=== PATIENT | female | born 1970 | race African-American/Black ===

== ENCOUNTER 2021-11-29 22:44 | Emergency (ER) | payer MEDICAID, OTHER ==
[~2021-11-29] VITALS: Ht 160 cm; Wt 95.3 kg
[2021-11-29 23:27] LABS: Eosinophils # (auto) 0.1 10 ^3/uL (0-0.8); Hematocrit 27.9 % (36.0-46.0); Lymphocytes # (auto) 1.2 10 ^3/uL (0.4-5.4)
[2021-11-29 23:30] LABS: Basophils # (auto) 0.1 10 ^3/uL (0-0.2); Basophils % (auto) 1.4 % (0.0-2.0); Hemoglobin 8.5 g/dL (12.2-16.2); Lymphocytes % (auto) 19.5 % (10.0-50.0); Mean Corpuscular Hemoglobin 21.2 pg (28.0-32.0); Mean Corpuscular Hgb Conc. 30.5 g/dL (32.0-36.0); Mean Corpuscular Volume 69.6 fL (80.0-100.0); Monocytes # (auto) 0.5 10 ^3/uL (0-1.3); Monocytes % (auto) 7.8 % (0.0-12.0); Neutrophils # (auto) 4.2 10 ^3/uL (1.6-8.6); Neutrophils % (auto) 70.3 % (37.0-80.0); Red Blood Cells 4.01 10^6/uL (4.0-5.20); Red Cell Distribution Width 19.1 % (11.8-14.3)
[2021-11-29] MEDS ORDERED: MORPHINE SULFATE 4 MG/ML SYR/VIAL IV ONE (23:30)
[2021-11-29 23:42] LABS: INR 1.05 (0.9-1.15); Partial Thromboplastin Time < 20.0 sec (23.6-33.0)
[2021-11-29 23:44] LABS: Albumin 2.8 g/dL (3.4-5.0); Calcium 8.5 mg/dL (8.5-10.1); Potassium 4.2 mmol/L (3.5-5.1)
[2021-11-29 23:48] LABS: BUN/Creatinine Ratio 6.7; Bilirubin, Total 0.4 mg/dL (0.2-1.0); Total Protein 6.8 g/dL (6.4-8.2)
[2021-11-30 01:00] VITALS: BP 146/60
== END 2021-11-30 02:20 | disposition home or self-care (01) ==
LOC: ER 22:44
DX: M79.605 Pain in left leg (principal); J45.909 Unspecified asthma, uncomplicated; E11.9 Type 2 diabetes mellitus without complications; F12.10 Cannabis abuse, uncomplicated
CPT/HCPCS: 36415; 80053; 85025; 85379; 85610; 85730; 93971; 96374; 99284; J2270

== ENCOUNTER 2021-12-04 08:33 | Inpatient (IN) | payer OTHER, MEDICAID ==
[~2021-12-04] VITALS: Ht 160 cm; Wt 113.8 kg
[2021-12-04 08:59] LABS: Basophils # (auto) 0.1 10 ^3/uL (0-0.2); Lymphocytes # (auto) 1.6 10 ^3/uL (0.4-5.4)
[2021-12-04] MEDS ORDERED: MORPHINE SULFATE 4 MG/ML SYR/VIAL IV ONE (09:00)
[2021-12-04 09:02] LABS: Basophils % (auto) 1.2 % (0.0-2.0); Eosinophils # (auto) 0.1 10 ^3/uL (0-0.8); Eosinophils % (auto) 0.7 % (0.0-7.0); Hematocrit 28.1 % (36.0-46.0); Hemoglobin 8.9 g/dL (12.2-16.2); Lymphocytes % (auto) 18.4 % (10.0-50.0); Mean Corpuscular Hemoglobin 21.8 pg (28.0-32.0); Mean Corpuscular Hgb Conc. 31.7 g/dL (32.0-36.0); Mean Corpuscular Volume 68.7 fL (80.0-100.0); Monocytes # (auto) 0.5 10 ^3/uL (0-1.3); Monocytes % (auto) 5.9 % (0.0-12.0); Neutrophils # (auto) 6.2 10 ^3/uL (1.6-8.6); Neutrophils % (auto) 73.8 % (37.0-80.0); Nucleated Red Blood Cells % 0.1 %; Red Blood Cells 4.09 10^6/uL (4.0-5.20); Red Cell Distribution Width 18.7 % (11.8-14.3); White Blood Cell 8.4 10^3/uL (4.4-10.8)
[2021-12-04] MEDS ORDERED: IOHEXOL 300 MG/ML 100ML BOTTLE IJ ONE (09:03)
[2021-12-04 09:16] LABS: Albumin 2.7 g/dL (3.4-5.0); Calcium 8.9 mg/dL (8.5-10.1); Potassium 3.9 mmol/L (3.5-5.1)
[2021-12-04 09:20] LABS: BUN/Creatinine Ratio 8.3; Bilirubin, Total 0.2 mg/dL (0.2-1.0); Total Protein 7.2 g/dL (6.4-8.2)
[2021-12-04] MEDS ORDERED: LACTATED RINGER'S 1,000 ML IV ONE (11:00)
[2021-12-04] MEDS ORDERED: HYDROmorphone HCL 2 MG/ML VL/or syr IV ONE (11:00)
[2021-12-04] MEDS ORDERED: MORPHINE SULFATE INJECTION 2 MG/ML SYRG IV ONE ×2 (16:00→16:15)
[2021-12-04 16:17] LABS: Urine Bacteria FEW /hpf (None Seen); Urine Blood Negative /uL (Negative); Urine WBC <1 /hpf (0 - 5)
[2021-12-04] MEDS ORDERED: INSLISPI SC (20:15)
[2021-12-04] MEDS ORDERED: METF-370 PO (20:15)
[2021-12-04] MEDS ORDERED: INSLANTI SC (20:15)
[2021-12-04] MEDS ORDERED: FERR1TAB36 PO (20:15)
[2021-12-04] MEDS ORDERED: ONDANSETRON HCL 4 MG/2 ML VIAL IV PRN (21:00)
[2021-12-04] MEDS ORDERED: DEXTROSE (50%) 50ML SYRG IV PRN (21:00)
[2021-12-04] MEDS ORDERED: SODIUM CHLORIDE 0.9% 1,000 ML IV SCH (21:00)
[2021-12-04] MEDS: MORPHINE SULFATE INJECTION 2 MG/ML SYRG IV PRN (21:28)
[2021-12-04 23:30] VITALS: BP 143/80
[2021-12-05] MEDS: ACCU-CHEK COMFORT CURVE STRIP VI SCH ×4 (00:02→18:14)
[2021-12-05] MEDS: InsuLIN REG 1unit/0.01ml Soln (100units/ml) SC SCH ×4 (00:13→17:50)
[2021-12-05] MEDS: MORPHINE SULFATE INJECTION 2 MG/ML SYRG IV PRN ×2 (02:12→06:15)
[2021-12-05 04:38] VITALS: BP 132/66
[2021-12-05 06:32] LABS: Mean Corpuscular Volume 68.6 fL (80.0-100.0)
[2021-12-05 06:34] LABS: Basophils # (auto) 0.1 10 ^3/uL (0-0.2); Basophils % (auto) 0.6 % (0.0-2.0); Eosinophils # (auto) 0 10 ^3/uL (0-0.8); Eosinophils % (auto) 0.5 % (0.0-7.0); Hematocrit 25.4 % (36.0-46.0); Hemoglobin 7.9 g/dL (12.2-16.2); Lymphocytes # (auto) 1.8 10 ^3/uL (0.4-5.4); Lymphocytes % (auto) 20.9 % (10.0-50.0); Mean Corpuscular Hemoglobin 21.5 pg (28.0-32.0); Mean Corpuscular Hgb Conc. 31.3 g/dL (32.0-36.0); Monocytes # (auto) 0.9 10 ^3/uL (0-1.3); Monocytes % (auto) 10.6 % (0.0-12.0); Neutrophils # (auto) 5.6 10 ^3/uL (1.6-8.6); Neutrophils % (auto) 67.4 % (37.0-80.0); White Blood Cell 8.4 10^3/uL (4.4-10.8)
[2021-12-05 06:50] LABS: Potassium 3.5 mmol/L (3.5-5.1)
[2021-12-05 06:56] LABS: Albumin 2.3 g/dL (3.4-5.0); BUN/Creatinine Ratio 5.4; Bilirubin, Total 0.3 mg/dL (0.2-1.0); Calcium 8.4 mg/dL (8.5-10.1); Total Protein 6.3 g/dL (6.4-8.2)
[2021-12-05] MEDS ORDERED: ceFAZolin 1GM/50ML 100 ML IV ONE (08:22)
[2021-12-05 09:00] VITALS: BP 127/65
[2021-12-05 09:22] LABS: INR 1.06 (0.9-1.15); Partial Thromboplastin Time 27.8 sec (23.6-33.0)
[2021-12-05] MEDS ORDERED: MEPERIDINE HCL (50 MG/ML) 1 ML VIAL ONE (09:30)
[2021-12-05] MEDS ORDERED: LIDOCAINE W/ EPINEPHRINE 1% 20ML VIAL ONE (09:30)
[2021-12-05] MEDS ORDERED: fentaNYL CITRATE 100 MCG/2 ML VL ONE (09:30)
[2021-12-05] MEDS ORDERED: BUPIVACAINE 0.25% INJ 50ML VIAL ONE (09:30)
[2021-12-05] MEDS ORDERED: MIDAZOLAM HCL 2MG/2ML 2ml VIAL (1mg/ml) ONE (09:30)
[2021-12-05] MEDS ORDERED: HYDROmorphone HCL 2 MG/ML VL/or syr IV PRN (09:45)
[2021-12-05] MEDS ORDERED: LABETALOL HCL 5 MG/ML 4ML SYRINGE IV PRN (09:45)
[2021-12-05] MEDS ORDERED: ACCU-CHEK COMFORT CURVE STRIP VI ONE (09:45)
[2021-12-05] MEDS ORDERED: MIDAZOLAM HCL 2MG/2ML 2ml VIAL (1mg/ml) IV PRN (09:45)
[2021-12-05] MEDS ORDERED: KETOROLAC TROMETH 30 MG/ML 1ML VIAL IV ONE (09:45)
[2021-12-05] MEDS ORDERED: ePHEDrine SULFATE 50 MG/ML AMP IV PRN (09:45)
[2021-12-05] MEDS ORDERED: MORPHINE SULFATE 4 MG/ML SYR/VIAL IV PRN (09:45)
[2021-12-05] MEDS ORDERED: ONDANSETRON HCL 4 MG/2 ML VIAL IV PRN (09:45)
[2021-12-05] MEDS ORDERED: PANTOPRAZOLE 40 MG/10 ML VIAL INJ IV SCH (10:00)
[2021-12-05] MEDS ORDERED: DexAMETHasone SOD PHOS 10MG/1ML VIAL INJ ONE (10:38)
[2021-12-05] MEDS ORDERED: diphenhdrAMINE HCL 50 MG/1 ML VL ONE (10:38)
[2021-12-05] MEDS ORDERED: NEOSTIGMINE 1 MG/ML INJ (10mg/10ML VIAL) ONE (10:41)
[2021-12-05] MEDS ORDERED: GLYCOPYRROLATE 0.2 MG/ML 1ML VIAL ONE (10:41)
[2021-12-05] MEDS ORDERED: ONDANSETRON HCL 4 MG/2 ML VIAL ONE (10:41)
[2021-12-05] MEDS: ONDANSETRON HCL 4 MG/2 ML VIAL IV PRN (11:19)
[2021-12-05] MEDS: ceFAZolin 1GM/50ML 50 ML IV SCH ×2 (14:00→21:31)
[2021-12-05] MEDS: D5W/SOD CHL 0.45%/KCL 20MEQ 1,000 ML IV SCH ×2 (14:00→19:05)
[2021-12-05] MEDS: metroNIDAZOLE 500MG/100ML 100 ML IV SCH ×2 (15:17→22:47)
[2021-12-05 17:45] LABS: Thyroid Stimulating Hormone 0.89 uIU/mL (0.358-3.74)
[2021-12-05] MEDS: ACETAMINOPHEN/CODEINE#3 (300/30mg) TAB PO PRN (19:49)
[2021-12-05 19:57] LABS: % Iron Saturation 7.2 % (15-50)
[2021-12-05 20:06] LABS: Folate (Folic Acid) 13.49 ng/mL (5.38-24)
[2021-12-05] MEDS ORDERED: guaiFENesin-DM 100/10mg/5ml SYR PO PRN (21:05)
[2021-12-05] MEDS: HYDROmorphone HCL 2 MG/ML VL/or syr IV PRN (22:03)
[2021-12-05 22:55] VITALS: BP 149/96
[2021-12-06] MEDS: ACCU-CHEK COMFORT CURVE STRIP VI SCH ×4 (00:48→18:08)
[2021-12-06] MEDS: InsuLIN REG 1unit/0.01ml Soln (100units/ml) SC SCH ×4 (00:53→18:09)
[2021-12-06] MEDS: D5W/SOD CHL 0.45%/KCL 20MEQ 1,000 ML IV SCH (03:54)
[2021-12-06] MEDS: ceFAZolin 1GM/50ML 50 ML IV SCH ×3 (05:14→20:51)
[2021-12-06] MEDS: HYDROmorphone HCL 2 MG/ML VL/or syr IV PRN ×4 (05:28→20:52)
[2021-12-06 05:37] VITALS: BP 137/71
[2021-12-06] MEDS: metroNIDAZOLE 500MG/100ML 100 ML IV SCH ×3 (06:14→22:15)
[2021-12-06 06:21] LABS: Eosinophils # (auto) 0 10 ^3/uL (0-0.8); Eosinophils % (auto) 0.3 % (0.0-7.0); Hemoglobin 8.4 g/dL (12.2-16.2); Mean Corpuscular Hemoglobin 22.2 pg (28.0-32.0); Monocytes # (auto) 0.8 10 ^3/uL (0-1.3); Neutrophils # (auto) 6.8 10 ^3/uL (1.6-8.6); Potassium 3.6 mmol/L (3.5-5.1)
[2021-12-06 06:25] LABS: BUN/Creatinine Ratio 9.2; Basophils # (auto) 0 10 ^3/uL (0-0.2); Basophils % (auto) 0.6 % (0.0-2.0); Hematocrit 26.6 % (36.0-46.0); Lymphocytes # (auto) 0.9 10 ^3/uL (0.4-5.4); Lymphocytes % (auto) 10.5 % (10.0-50.0); Magnesium 1.7 mg/dL (1.6-2.6); Mean Corpuscular Hgb Conc. 31.5 g/dL (32.0-36.0); Mean Corpuscular Volume 70.6 fL (80.0-100.0); Monocytes % (auto) 8.9 % (0.0-12.0); Neutrophils % (auto) 79.7 % (37.0-80.0); Red Blood Cells 3.77 10^6/uL (4.0-5.20); Red Cell Distribution Width 19.7 % (11.8-14.3); White Blood Cell 8.5 10^3/uL (4.4-10.8)
[2021-12-06 08:43] VITALS: BP 111/62
[2021-12-06] MEDS: PANTOPRAZOLE 40 MG/10 ML VIAL INJ IV SCH (08:53)
[2021-12-06 13:00] VITALS: BP 117/73
[2021-12-06] MEDS ORDERED: SODIUM FERR GLUC 62.5MG/5ML 125 MG in SODIUM CHL 0.9% 100 ML IV ONE (16:30)
[2021-12-06 16:40] VITALS: BP 140/79
[2021-12-06 22:00] VITALS: BP 111/71
[2021-12-06] MEDS: MAGNESIUM OXIDE 400 MG TAB PO SCH (22:15)
[2021-12-07] MEDS: InsuLIN REG 1unit/0.01ml Soln (100units/ml) SC SCH ×5 (00:09→23:44)
[2021-12-07] MEDS: ACCU-CHEK COMFORT CURVE STRIP VI SCH ×5 (00:09→23:41)
[2021-12-07] MEDS: HYDROmorphone HCL 2 MG/ML VL/or syr IV PRN ×3 (04:28→20:34)
[2021-12-07] MEDS: ceFAZolin 1GM/50ML 50 ML IV SCH ×3 (04:46→20:34)
[2021-12-07 05:00] VITALS: BP 137/83
[2021-12-07] MEDS: metroNIDAZOLE 500MG/100ML 100 ML IV SCH ×3 (05:33→22:04)
[2021-12-07 06:55] LABS: Basophils # (auto) 0 10 ^3/uL (0-0.2); Eosinophils # (auto) 0 10 ^3/uL (0-0.8); Hematocrit 27.2 % (36.0-46.0); Hemoglobin 8.7 g/dL (12.2-16.2); Lymphocytes # (auto) 0.8 10 ^3/uL (0.4-5.4); Lymphocytes % (auto) 15.5 % (10.0-50.0); Mean Corpuscular Hemoglobin 22.5 pg (28.0-32.0); Mean Corpuscular Hgb Conc. 32.1 g/dL (32.0-36.0); Mean Corpuscular Volume 70.1 fL (80.0-100.0); Monocytes # (auto) 0.7 10 ^3/uL (0-1.3); Monocytes % (auto) 14.5 % (0.0-12.0); Neutrophils # (auto) 3.4 10 ^3/uL (1.6-8.6); Red Blood Cells 3.88 10^6/uL (4.0-5.20)
[2021-12-07 06:56] LABS: Red Cell Distribution Width 20.3 % (11.8-14.3)
[2021-12-07 09:00] VITALS: BP 124/58
[2021-12-07] MEDS: MAGNESIUM OXIDE 400 MG TAB PO SCH ×2 (09:38→22:04)
[2021-12-07] MEDS: PANTOPRAZOLE 40 MG/10 ML VIAL INJ IV SCH (09:38)
[2021-12-07] MEDS: SODIUM FERR GLUC 62.5MG/5ML 125 MG in SODIUM CHL 0.9% 100 ML IV SCH (12:00)
[2021-12-07 13:00] VITALS: BP 132/78
[2021-12-07] MEDS: ACETAMINOPHEN/CODEINE#3 (300/30mg) TAB PO PRN (14:28)
[2021-12-07 17:00] VITALS: BP 135/72
[2021-12-07 22:00] VITALS: BP 144/78
[2021-12-08] MEDS: HYDROmorphone HCL 2 MG/ML VL/or syr IV PRN ×4 (01:09→20:56)
[2021-12-08] MEDS: ceFAZolin 1GM/50ML 50 ML IV SCH ×3 (04:30→20:55)
[2021-12-08 05:00] VITALS: BP 118/61
[2021-12-08 05:30] LABS: Basophils # (auto) 0.1 10 ^3/uL (0-0.2); Basophils % (auto) 0.9 % (0.0-2.0); Eosinophils # (auto) 0.1 10 ^3/uL (0-0.8); Hematocrit 27.3 % (36.0-46.0); Monocytes # (auto) 0.9 10 ^3/uL (0-1.3)
[2021-12-08 05:33] LABS: Eosinophils % (auto) 1.9 % (0.0-7.0); Hemoglobin 8.7 g/dL (12.2-16.2); Lymphocytes # (auto) 1.2 10 ^3/uL (0.4-5.4); Lymphocytes % (auto) 21.1 % (10.0-50.0); Mean Corpuscular Hemoglobin 22.7 pg (28.0-32.0); Mean Corpuscular Hgb Conc. 32.1 g/dL (32.0-36.0); Mean Corpuscular Volume 70.7 fL (80.0-100.0); Monocytes % (auto) 15.6 % (0.0-12.0); Neutrophils # (auto) 3.4 10 ^3/uL (1.6-8.6); Neutrophils % (auto) 60.5 % (37.0-80.0); Red Blood Cells 3.86 10^6/uL (4.0-5.20); Red Cell Distribution Width 19.7 % (11.8-14.3); White Blood Cell 5.7 10^3/uL (4.4-10.8)
[2021-12-08] MEDS: ACCU-CHEK COMFORT CURVE STRIP VI SCH ×4 (05:39→23:59)
[2021-12-08] MEDS: metroNIDAZOLE 500MG/100ML 100 ML IV SCH ×3 (05:39→22:02)
[2021-12-08] MEDS: InsuLIN REG 1unit/0.01ml Soln (100units/ml) SC SCH ×3 (05:41→18:00)
[2021-12-08 05:44] LABS: Calcium 8.7 mg/dL (8.5-10.1); Potassium 3.5 mmol/L (3.5-5.1)
[2021-12-08 05:47] LABS: BUN/Creatinine Ratio 8.5
[2021-12-08 08:38] VITALS: BP 132/63
[2021-12-08] MEDS: PANTOPRAZOLE 40 MG/10 ML VIAL INJ IV SCH (09:30)
[2021-12-08] MEDS: MAGNESIUM OXIDE 400 MG TAB PO SCH ×2 (09:34→22:02)
[2021-12-08] MEDS: SODIUM FERR GLUC 62.5MG/5ML 125 MG in SODIUM CHL 0.9% 100 ML IV SCH (12:00)
[2021-12-08 12:38] VITALS: BP 140/75
[2021-12-08 16:38] VITALS: BP 154/76
[2021-12-08] MEDS ORDERED: DOCUSATE SOD 100 MG CAP PO PRN (17:45)
[2021-12-08 22:00] VITALS: BP 124/54
[2021-12-09] MEDS: HYDROmorphone HCL 2 MG/ML VL/or syr IV PRN ×6 (02:16→23:52)
[2021-12-09] MEDS: ceFAZolin 1GM/50ML 50 ML IV SCH ×3 (04:59→20:36)
[2021-12-09 05:00] VITALS: BP 155/80
[2021-12-09] MEDS: metroNIDAZOLE 500MG/100ML 100 ML IV SCH ×3 (05:59→23:52)
[2021-12-09] MEDS: ACCU-CHEK COMFORT CURVE STRIP VI SCH ×4 (05:59→23:56)
[2021-12-09] MEDS: InsuLIN REG 1unit/0.01ml Soln (100units/ml) SC SCH ×5 (06:00→23:54)
[2021-12-09 06:20] LABS: Albumin 2.1 g/dL (3.4-5.0); Calcium 8.5 mg/dL (8.5-10.1); Potassium 3.6 mmol/L (3.5-5.1)
[2021-12-09 06:22] LABS: Eosinophils # (auto) 0.1 10 ^3/uL (0-0.8); Hemoglobin 8.8 g/dL (12.2-16.2); Lymphocytes # (auto) 1.1 10 ^3/uL (0.4-5.4); White Blood Cell 6.2 10^3/uL (4.4-10.8)
[2021-12-09 06:23] LABS: BUN/Creatinine Ratio 9.4; Basophils # (auto) 0 10 ^3/uL (0-0.2); Basophils % (auto) 0.6 % (0.0-2.0); Bilirubin, Total 0.2 mg/dL (0.2-1.0); Eosinophils % (auto) 1.5 % (0.0-7.0); Hematocrit 27.9 % (36.0-46.0); Lymphocytes % (auto) 17.3 % (10.0-50.0); Mean Corpuscular Hemoglobin 22.2 pg (28.0-32.0); Mean Corpuscular Hgb Conc. 31.7 g/dL (32.0-36.0); Monocytes # (auto) 0.5 10 ^3/uL (0-1.3); Monocytes % (auto) 8.9 % (0.0-12.0); Neutrophils # (auto) 4.4 10 ^3/uL (1.6-8.6); Neutrophils % (auto) 71.7 % (37.0-80.0); Red Blood Cells 3.98 10^6/uL (4.0-5.20)
[2021-12-09 06:48] LABS: Red Cell Distribution Width 20.5 % (11.8-14.3)
[2021-12-09 09:23] VITALS: BP 127/77
[2021-12-09] MEDS: POLYETHYLENE GLYCOL 17 GM PWDR PO SCH (10:00)
[2021-12-09] MEDS: MAGNESIUM OXIDE 400 MG TAB PO SCH ×2 (10:00→22:06)
[2021-12-09] MEDS: PANTOPRAZOLE 40 MG/10 ML VIAL INJ IV SCH (10:00)
[2021-12-09] MEDS: SODIUM FERR GLUC 62.5MG/5ML 125 MG in SODIUM CHL 0.9% 100 ML IV SCH (12:00)
[2021-12-09 12:30] VITALS: BP 140/70
[2021-12-09] MEDS: ONDANSETRON HCL 4 MG/2 ML VIAL IV PRN (13:18)
[2021-12-09 17:00] VITALS: BP 122/75
[2021-12-09 22:00] VITALS: BP 126/67
[2021-12-09] MEDS ORDERED: SENNA 8.6 MG TAB PO SCH (22:00)
[2021-12-10] MEDS: HYDROmorphone HCL 2 MG/ML VL/or syr IV PRN (03:23)
[2021-12-10 04:35] VITALS: BP 129/68
[2021-12-10] MEDS: ceFAZolin 1GM/50ML 50 ML IV SCH ×2 (05:14→12:38)
[2021-12-10 05:47] LABS: Basophils # (auto) 0.1 10 ^3/uL (0-0.2); Eosinophils # (auto) 0.1 10 ^3/uL (0-0.8); Monocytes # (auto) 0.6 10 ^3/uL (0-1.3); Neutrophils # (auto) 3.8 10 ^3/uL (1.6-8.6); White Blood Cell 5.8 10^3/uL (4.4-10.8)
[2021-12-10 05:50] LABS: Basophils % (auto) 0.9 % (0.0-2.0); Eosinophils % (auto) 2.1 % (0.0-7.0); Hematocrit 27.4 % (36.0-46.0); Hemoglobin 8.8 g/dL (12.2-16.2); Lymphocytes # (auto) 1.2 10 ^3/uL (0.4-5.4); Lymphocytes % (auto) 21.4 % (10.0-50.0); Mean Corpuscular Hemoglobin 22.6 pg (28.0-32.0); Mean Corpuscular Volume 70.5 fL (80.0-100.0); Monocytes % (auto) 10.1 % (0.0-12.0); Neutrophils % (auto) 65.5 % (37.0-80.0); Nucleated Red Blood Cells % 0.2 %; Red Blood Cells 3.88 10^6/uL (4.0-5.20)
[2021-12-10 05:52] LABS: Red Cell Distribution Width 20.3 % (11.8-14.3)
[2021-12-10] MEDS: ACCU-CHEK COMFORT CURVE STRIP VI SCH ×2 (06:00→11:52)
[2021-12-10] MEDS: InsuLIN REG 1unit/0.01ml Soln (100units/ml) SC SCH ×2 (06:03→11:55)
[2021-12-10 06:04] LABS: Potassium 3.4 mmol/L (3.5-5.1)
[2021-12-10] MEDS: metroNIDAZOLE 500MG/100ML 100 ML IV SCH ×2 (06:04→14:00)
[2021-12-10 06:19] LABS: BUN/Creatinine Ratio 13.3; Bilirubin, Total 0.2 mg/dL (0.2-1.0); Calcium 8.4 mg/dL (8.5-10.1); Total Protein 5.9 g/dL (6.4-8.2)
[2021-12-10 08:30] VITALS: BP 126/63
[2021-12-10] MEDS: MAGNESIUM OXIDE 400 MG TAB PO SCH (09:10)
[2021-12-10] MEDS: POLYETHYLENE GLYCOL 17 GM PWDR PO SCH (09:10)
[2021-12-10] MEDS: PANTOPRAZOLE 40 MG/10 ML VIAL INJ IV SCH (09:11)
[2021-12-10] MEDS ORDERED: POTASSIUM CHL 20 Meq TABLET PO ONE (09:45)
[2021-12-10] MEDS: SODIUM FERR GLUC 62.5MG/5ML 125 MG in SODIUM CHL 0.9% 100 ML IV SCH (11:20)
[2021-12-10] MEDS ORDERED: LEVO500T31 PO (11:27)
[2021-12-10] MEDS ORDERED: METR500T PO (11:27)
[2021-12-10 13:22] VITALS: BP 141/77
[2021-12-10 13:36] VITALS: BP 141/77
== END 2021-12-10 15:00 | disposition home or self-care (01) | DRG 341 ==
LOC: EDBD 08:33 → ER 08:33 → OVERFLOW 20:58 → EAST 23:10
PROVIDERS: ADMIT Nurse Practitioner; ATTEND Internal Medicine
PROC: 30233N1 Transfusion of Nonautologous Red Blood Cells into Peripheral Vein, Percutaneous Approach (ICD-10-PCS; 2021-12-05)
PROC: 0DTJ4ZZ Resection of Appendix, Percutaneous Endoscopic Approach (ICD-10-PCS; principal; 2021-12-05 09:38)
PROC: 0UDB8ZZ Extraction of Endometrium, Via Natural or Artificial Opening Endoscopic (ICD-10-PCS; 2021-12-05 09:38)
DX: K37 Unspecified appendicitis (principal); E43 Unspecified severe protein-calorie malnutrition; D50.9 Iron deficiency anemia, unspecified; N83.201 Unspecified ovarian cyst, right side; D25.9 Leiomyoma of uterus, unspecified; J45.909 Unspecified asthma, uncomplicated; E11.65 Type 2 diabetes mellitus with hyperglycemia; E66.9 Obesity, unspecified; I10 Essential (primary) hypertension; R93.89 Abnormal findings on diagnostic imaging of other specified body structures; Z20.822 Contact with and (suspected) exposure to COVID-19; Z98.51 Tubal ligation status; Z68.37 Body mass index [BMI] 37.0-37.9, adult
CPT/HCPCS: 36415; 71045; 74177; 76705; 76830; 76856; 80048; 80053; 81001; 81025; 82607; 82746; 82962; 83036; 83540; 83550; 83605; 83615; 83690; 83735; 84443; 84484; 84702; 85025; 85045; 85610; 85730; 86850; 86900; 86901; 86920; 87081; 93005; 96361; 96374; 96375; 96376; 97110; 97116; 97163; 97530; C9113; G0378; J0690; J1100; J1815; J1885; J2250; J2405; J3490

== ENCOUNTER 2023-01-09 19:04 | Emergency (ER) | payer MEDICAID, OTHER ==
[~2023-01-09] VITALS: Ht 160 cm; Wt 94.3 kg
[~2023-01-09 19:04] MED LIST: FERR1TAB36 PO; INSLANTI SC; INSLISPI SC; LEVO500T31 PO; METF-370 PO; METR500T PO
[2023-01-09] MEDS ORDERED: GABA800T97 PO (20:22)
[2023-01-09] MEDS ORDERED: MEDR10TA9 PO (20:22)
[2023-01-09 20:29] VITALS: BP 134/92
[2023-01-09] MEDS ORDERED: GABAPENTIN 400 MG CAP PO ONE (20:30)
== END 2023-01-09 21:03 | disposition home or self-care (01) ==
LOC: ER 19:07
DX: E11.9 Type 2 diabetes mellitus without complications (principal); Z76.0 Encounter for issue of repeat prescription

== ENCOUNTER 2024-06-13 20:31 | Inpatient (IN) | payer MEDICAID ==
[~2024-06-13] VITALS: Ht 160 cm; Wt 98.9 kg
[~2024-06-13 20:31] MED LIST changes: +GABA800T97 PO; +MEDR10TA9 PO
--- NOTE | 2024-06-13 20:58 | ED.PDOC ---
HPI Comments 53-year-old female brought in by EMS presents with a chief complaint of chest pain x onset 0830 this morning. Patient states that her pain is localized to her substernal chest, non-radiating, describes as sharp, and reports that this pain feels similar to her previous MIs. Patient was tachycardic per EMS in the 120s, but was NSR. Patient was given 324mg ASA by EMS and dropped the pain from 10/10 to 7/10. No other symptoms or modifying factors present at this time. Time Seen by MD: 20:40 Primary Care Provider: NONE Reviewed Notes: Medications, Allergies Allergies: Coded Allergies: NO KNOWN ALLERGIES (Unverified , 12/04/21) Home Meds Active Scripts Medroxyprogesterone Acetate (Medroxyprogesterone Aceta) 10 Mg Tab, 10 MG PO DAILY, #60 TAB 0 Refills Prov:JEROD MIRANDA 01/09/23 Gabapentin (Gabapentin) 800 Mg Tab, 800 MG PO PRN, #30 TAB 0 Refills Prov:JEROD MIRANDA 01/09/23 Levofloxacin (Levaquin) 500 Mg Tab, 500 MG PO DAILY for 7 Days, #7 TAB Prov:ROSETTE LUO MD 12/10/21 Metronidazole (Flagyl) 500 Mg Tab, 500 MG PO TIDWM for 7 Days, #21 TAB Prov:ROSETTE LUO MD 12/10/21 Reported Medications Insulin Lispro (Human) (Humalog) 100 Unit/Ml Inj, SC QAM, INJ 12/04/21 Ferrous Sulfate (Iron (Ferrous Sulfate)) 50 Mg Tab, 325 MG PO DAILY, TAB 12/04/21 Insulin Glargine (Lantus) 100 Unit/Ml Inj, 24 UNIT SC DAILY, INJ 12/04/21 Metformin Hydrochloride (Metformin Hcl) 500 Mg Tab, PO DAILY for 30 Days, MG 12/04/21 Information Source: Emergency Med Personnel Mode of Arrival: EMS Severity: Moderate Timing: Hours Duration: Since onset Prehospital treatment: ASA Location: Substernal Radiation: No Radiation Quality: Sharp Onset: At Rest Cardiac Risk Factors: HTN, Diabetes PE Risk Factors: None History of: Similar pain in past, NV Past Medical History PAST MEDICAL HISTORY: CHF, DM, HTN, NV Surgical History: Appendectomy 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: Ovarian Cysts, Uterine Fibroids Family History Family History: Reviewed,noncontributory to illness Social History Smoker: Non-Smoker Alcohol: Denies ETOH Use Drugs: Denies Drug Use Lives In: Home Constitutional: denies: chills, diaphoresis, fatigue, fever, malaise, sweats, weakness, others EENTM: denies: blurred vision, double vision, ear bleeding, ear discharge, ear drainage, ear pain, ear ringing, eye pain, eye redness, hearing loss, mouth pain, mouth swelling, nasal discharge, nose bleeding, nose congestion, nose pain, photophobia, tearing, throat pain, throat swelling, voice changes, others Respiratory: denies: cough, hemoptysis, orthopnea, SOB at rest, shortness of breath, SOB with excertion, stridor, wheezing, others Cardiovascular: reports: chest pain; denies: dizzy spells, diaphoresis, Dyspnea on exertion, edema, irregular heart beat, left arm pain, lightheadedness, palpitations, PND, syncope, others Gastrointestinal: denies: abdomen distended, abdominal pain, blood streaked bowels, constipated, diarrhea, dysphagia, difficulty swallowing, hematemesis, melena, nausea, poor appetite, poor fluid intake, rectal bleeding, rectal pain, vomiting, others Genitourinary: denies: abnormal vagina bleeding, burning, dyspareunia, dysuria, flank pain, frequency, hematuria, incontinence, pain, , vagina discharge, urgency, others Neurological: denies: dizziness, fainting, headache, left sided numbness, left sided weakness, numbness, paresthesia, pre-existing deficit, right sided numbness, right sided weakness, seizure, speech problems, tingling, tremors, weakness, others Musculoskeletal: denies: back pain, gout, joint pain, joint swelling, muscle pain, muscle stiffness, neck pain, others Integumetry: denies: bruises, change in color, change in hair/nails, dryness, laceration, lesions, lumps, rash, wounds, others Allergic/Immunocompromised: denies: Difficulty Healing, Frequent Infections, Hives, Itching, others Hematologic/Lymphatic: denies: anemia, blood clots, easy bleeding, easy bruising, swollen glands, others Endocrine: denies: excessive hunger, excessive sweating, excessive thirst, excessive urination, flushing, intolerance to cold, intolerance to heat, unexplained weight gain, unexplained weight loss, others Psychiatric: denies: anxiety, bipolar disorder, depression, hopeless, panic disorder, schizophrenia, sleepless, suicidal, others All Other Systems: Reviewed and Negative Physical Exam General Appearance: No Apparent Distress HEENT: Normal ENT Inspection Neck: Full Range of Motion, Normal Inspection Respiratory: Decreased Breath Sounds, No Accessory Muscle Use, No Respiratory Distress Cardiovascular: No Edema, No JVD, Regular Rate/Rhythm Breast Exam: Deferred Gastrointestinal: Non Tender, Soft Genitalia: Deferred Pelvic: Deferred Rectal: Deferred Extremities: Normal inspection, Normal range of motion, No pedal edema Neurologic: Alert, No Motor Deficits, Normal Affect, Normal Mood, No Sensory Deficits Cerebellar Function: NOT DONE Reflexes: NOT DONE Skin: Dry, Normal Color, Warm Lymphatic: NOT DONE EKG EKG #1: Comments Sinus tach, rate 118, normal intervals, left axis deviation, upsloping ST elevation in anteroseptal leads possibly indicating acute infarct, minimal ST depression in leads 1 and aVL EKG #2: Comments Sinus tach, rate 119, normal intervals, left axis deviation, old inferior infarct, minimal upsloping ST elevation in anteroseptal leads with minimal ST depression in leads 1 and aVL, no significant change from EKG 1. Was a procedure done? Was a procedure done?: No CP Differential Dx Differential Diagnosis: Angina, Anxiety / Panic Attack, Heart Failure, NV Differential Diagnosis: CHF Differential Diagnosis: Chest Wall Pain, Esophageal reflux/spasm, Gastritis X-Ray, Labs, Meds, VS Vital Signs Date Time Temp Pulse Resp B/P (MAP) Pulse Ox O2 Delivery O2 Flow Rate FiO2 06/13/24 23:35 116 06/13/24 23:01 118 18 159/91 (113) 93 06/13/24 22:19 156/84 06/13/24 21:36 119 06/13/24 21:32 95 Room Air* 0 06/13/24 21:17 184/91 06/13/24 21:10 98.6 122 17 184/91 (122) 95 98.6 06/13/24 21:10 122 17 96 Room Air* 0 06/13/24 21:10 98.5 122 17 184/91 (122) 95 98.5 11/10/24 21:10 122 06/13/24 20:35 118 06/13/24 20:31 101.6 118 18 148/98 (115) 96 Lab Test 06/13/24 22:07 06/13/24 21:41 06/13/24 21:07 Range/Units Sodium Level 136 136-145 mmol/L Potassium Level 4.2 3.5-5.1 mmol/L Chloride Level 106 98-107 mmol/L Carbon Dioxide Level 23 20-31 mmol/L Anion Gap 7 5-15 Blood Urea Nitrogen 14 9-23 mg/dL Creatinine 1.03 H 0.550-1.02 mg/dL Glomerular Filtration Rate Calc 66 >90 mL/min BUN/Creatinine Ratio 13.6 10.0-20.0 Serum Glucose 395 H 74-106 mg/dL Calcium Level 9.2 8.7-10.4 mg/dL Troponin I High Sensitivity 5 6 </=34 ng/L Urine Color Colorless Yellow Urine Clarity Clear Clear Urine pH 5.5 5.0-9.0 Urine Specific [place] 1.026 1.001-1.035 Urine Protein 2+ H Negative Urine Ketones Negative Negative Urine Blood Negative Negative /uL Urine Nitrite Negative Negative Urine Bilirubin Negative Negative Urine Urobilinogen Normal Negative mg/dL Urine Leukocyte Esterase Negative Negative /uL Urine RBC 3 0 - 4 /hpf Urine WBC 8 0 - 5 /hpf Urine Squamous Epithelial Cells Few <5 /hpf Urine Bacteria Few H None Seen /hpf Urine Yeast (Budding) Few None Seen /hpf Urine Glucose 4+ H Normal mg/dL Urine Test Negative Negative White Blood Count 10.3 4.4-10.8 10^3/uL Red Blood Count 4.93 4.0-5.20 10^6/uL Hemoglobin 13.1 12.2-16.2 g/dL Hematocrit 40.7 36.0-46.0 % Mean Corpuscular Volume 82.5 80.0-100.0 fL Mean Corpuscular Hemoglobin 26.6 L 28.0-32.0 pg Mean Corpuscular Hemoglobin Concent 32.2 32.0-36.0 g/dL Red Cell Distribution Width 14.5 H 11.8-14.3 % Platelet Count 322 140-450 10^3/uL Mean Platelet Volume 8.3 6.9-10.8 fL Neutrophils (%) (Auto) 80.1 H 37.0-80.0 % Lymphocytes (%) (Auto) 12.3 10.0-50.0 % Monocytes (%) (Auto) 6.3 0.0-12.0 % Eosinophils (%) (Auto) 0.6 0.0-7.0 % Basophils (%) (Auto) 0.7 0.0-2.0 % Neutrophils # (Auto) 8.3 1.6-8.6 10 ^3/uL Lymphocytes # (Auto) 1.3 0.4-5.4 10 ^3/uL Monocytes # (Auto) 0.6 0-1.3 10 ^3/uL Eosinophils # (Auto) 0.1 0-0.8 10 ^3/uL Basophils # (Auto) 0.1 0-0.2 10 ^3/uL Nucleated Red Blood Cells 0.1 % Prothrombin Time 10.6 9.3-11.8 sec Prothrombin Time INR 1.00 0.9-1.15 Activated Partial Thromboplast Time 26.4 24.5-34.5 SEC B-Type Natriuretic Peptide 11.68 0-100 pg/mL Current Medications Medications (Trade) Dose Ordered Sig/Pepe Route Start Time Stop Time Status Last Admin Nitroglycerin (Nitro-Bid) 1 pkg ONCE ONCE TD 06/13/24 21:00 06/13/24 21:01 DC 06/13/24 21:17 PROCEDURE(s): CXRP - CHEST PORTABLE REASON: cp ORDER NUMBER(s): [id number], ACCESSION NUMBER(s): [id number] EXAM: XY CHEST PORTABLE CLINICAL HISTORY: cp TECHNIQUE: Single AP view of the chest WID: COMPARISON: CHEST PORTABLE on DOS: 12/04/21 FINDINGS: Lines and tubes: Defibrillator pad projects over the lateral right chest. Chest: The heart size and pulmonary vasculature is within normal limits. Calcified plaque projects over the aortic arch. No pleural effusion, pneumothorax, or consolidation. Nodular opacity in the lateral left lower lung. The osseous structures are grossly intact. IMPRESSION: 1. No acute cardiopulmonary abnormality. 2. Nodular opacity in the lateral left lower lung. Consider characterization with nonemergent / outpatient CT chest for further evaluation. X-Ray, Labs, Meds, VS Comment 53-year-old female with a history of hypertension, diabetes, mi, CHF presenting with chest pain similar to previous MIs Vitals remarkable for BP 184/91, heart rate 119 Exam remarkable for tachycardia EKG sinus tach, upsloping ST elevation in anteroseptal leads with minimal ST depression in lateral leads Chest x-ray unremarkable CBC unremarkable, basic metabolic panel remarkable for glucose 395, BNP and 2 serial troponins unremarkable, UA unremarkable for any abnormality of acute significance Case was discussed with Dr. Mtz, who reviewed the initial EKG. He agreed the findings were equivocal for STEMI, however since the patient was complaining of pain similar to previous MIs, he will take the patient to the blood bank laboratory technician. Patient was treated with the following in the ED: Nitro-Bid 1/2 inch to chest wall Plan is to admit the patient for ongoing cardiology evaluation. Case discussed with Dr. Vang at [facility] [place] who authorized the patient to be admitted here. Authorization [id number] Time of 1ST Reevaluation: 21:20 Reevaluation 1ST: Unchanged Time of 2ND Reevaluation: 22:00 Reevaluation 2ND: Improved Patient Education/Counseling: Diagnosis, Treatment, Prognosis Family Education/Counseling: No Family Present Departure 1 Departure Time of Disposition: 00:05 Impression: Primary Impression: Chest pain Qualified Codes: I20.0 - Unstable angina Disposition: 09 ADMITTED INPATIENT Admit to: Tele Condition: Guarded Critical Care Note Critical Care Time?: Yes (35 min-critical care time only) Critical care comment: Critical care time including multiple bedside re-evaluations, review of laboratory and imaging studies, and discussion of the case with the consulting and admitting providers. Patient is high risk for hemodynamic decompensation. Stability Stability form required: No Heart Score Heart Score: Heart Score Response (Comments) Value History Highly Suspicious [address]-Deviation 2 Age 45-64 1 Risk Factors >3 or Hx ASHD 2 Troponin Normal limit 0 Total 7 I personally scribed for ALEXANDRA ZEPEDA MD ([email or web address]) on 06/13/24 at 20:58. Electronically submitted by Kirt Monet ([email or web address]). ALEXANDRA ZEPEDA MD Jun 13, 2024 20:58
[2024-06-13 21:10] VITALS: PULSE 122; PULSE 94; RESP 17; RESP 23; O2SAT 96
[2024-06-13] MEDS: NITROGLYCERIN 2% OINT 1GM PKG TD ONE (21:17)
[2024-06-13 21:37] LABS: Basophils # (auto) 0.1 10 ^3/uL (0-0.2); Eosinophils # (auto) 0.1 10 ^3/uL (0-0.8); Eosinophils % (auto) 0.6 % (0.0-7.0); Hemoglobin 13.1 g/dL (12.2-16.2); Monocytes # (auto) 0.6 10 ^3/uL (0-1.3); Neutrophils # (auto) 8.3 10 ^3/uL (1.6-8.6); Nucleated Red Blood Cells % 0.1 %; White Blood Cell 10.3 10^3/uL (4.4-10.8)
[2024-06-13 21:39] LABS: Basophils % (auto) 0.7 % (0.0-2.0); Hematocrit 40.7 % (36.0-46.0); Lymphocytes # (auto) 1.3 10 ^3/uL (0.4-5.4); Lymphocytes % (auto) 12.3 % (10.0-50.0); Mean Corpuscular Hemoglobin 26.6 pg (28.0-32.0); Mean Corpuscular Hgb Conc. 32.2 g/dL (32.0-36.0); Mean Corpuscular Volume 82.5 fL (80.0-100.0); Monocytes % (auto) 6.3 % (0.0-12.0); Neutrophils % (auto) 80.1 % (37.0-80.0); Platelet Count (auto) 322 10^3/uL (140-450); Red Blood Cells 4.93 10^6/uL (4.0-5.20); Red Cell Distribution Width 14.5 % (11.8-14.3)
--- NOTE | 2024-06-13 21:49 | DVH ---
EXAM: XY CHEST PORTABLE CLINICAL HISTORY: cp TECHNIQUE: Single AP view of the chest WID: COMPARISON: CHEST PORTABLE on DOS: 12/04/21 FINDINGS: Lines and tubes: Defibrillator pad projects over the lateral right chest. Chest: The heart size and pulmonary vasculature is within normal limits. Calcified plaque projects over the aortic arch. No pleural effusion, pneumothorax, or consolidation. Nodular opacity in the lateral left lower lung. The osseous structures are grossly intact. IMPRESSION: 1. No acute cardiopulmonary abnormality. 2. Nodular opacity in the lateral left lower lung. Consider characterization with nonemergent / outp atient CT chest for further evaluation.
[2024-06-13 21:56] LABS: Urine Bacteria FEW /hpf (None Seen); Urine Blood Negative /uL (Negative); Urine Budding Yeast FEW /hpf (None Seen); Urine Clarity Clear (Clear); Urine Color Colorless (Yellow); Urine Protein, UAD 2+ (Negative); Urine Specific Gravity 1.026 (1.001-1.035); Urine Urobilinogen Normal (Negative); Urine WBC 8 /hpf (0 - 5); Urine pH 5.5 (5.0-9.0)
[2024-06-13 22:04] LABS: Partial Thromboplastin Time 26.4 SEC (24.5-34.5); Prothrombin Time 10.6 sec (9.3-11.8)
[2024-06-13 22:50] LABS: Chloride 106 mmol/L (98-107); Potassium 4.2 mmol/L (3.5-5.1); Sodium 136 mmol/L (136-145)
[2024-06-13 22:51] LABS: Anion Gap 7 (5-15); Calcium 9.2 mg/dL (8.7-10.4); Carbon Dioxide 23 mmol/L (20-31)
[2024-06-13 22:56] LABS: BUN/Creatinine Ratio 13.6 (10.0-20.0); Blood Urea Nitrogen 14 mg/dL (9-23); Glucose 395 mg/dL (74-106)
[2024-06-13] MEDS: VERAPAMIL 2.5MG/ML INJ 2ML VIAL IV ONE (23:41)
[2024-06-13] MEDS: ANGIOMAX 250 MG VIAL IV ONE (23:41)
[2024-06-13] MEDS: MIDAZOLAM HCL 2MG/2ML 2ml VIAL (1mg/ml) ONE (23:42)
[2024-06-13] MEDS: fentaNYL CITRATE 100 MCG/2 ML VL ONE (23:42)
[2024-06-13] MEDS: LIDOCAINE 2%HCL (LOCAL ANESTH.) INJ 20ML MDV ONE (23:42)
[2024-06-13] MEDS: IODIXANOL 320MG/ML 100ML BTL IV ONE (23:42)
[2024-06-13] MEDS: SODIUM CHL 0.9% 50 ML ONE (23:42)
[2024-06-14] VITALS (20 sets, daily range): BP systolic 119–190; BP diastolic 59–92; PULSE 87–101; RESP 9–25; TEMP 98.2–98.9; O2SAT 91–100
--- NOTE | 2024-06-14 01:21 | DVHINCON2 ---
Date Seen: Jun 13, 2024 Referring Physician ER contract coordinator Reason for Consultation Acute chest pain with EKG changes of the anterior lead presenting acute coronary syndrome possible old anterior septal myocardial infarction History of Present Illness 53-year-old lady with past medical history of diabetes mellitus that is poorly controlled last hemoglobin A1c was more than 11. She presented to the hospital complaining of pressure-like sensation with shortness of in the center of the chest with a past 3 hours. Patient has been having intermittent chest pain or shortness of breath for the past couple of days. [place] EKG shows mild ST segment elevations with Q-waves in the anteroseptal leads. Likely representing subacute anterior myocardial infarction. Given the patient's symptoms at presentation she was consider as a case of acute coronary syndrome with the high-risk features at ongoing pain for which cardiac catheterization was activated patient was transferred to the microbiology lab technician. Past Medical History Poorly controlled diabetes mellitus, hypertension, hyperlipidemia, and obesity. Family History: Cardiovascular disease G8 MOTHER Diabetes mellitus G8 MOTHER FH: breast cancer G8 MOTHER FH: esophageal cancer Hypertension G8 MOTHER G8 FATHER Allergies: Coded Allergies: NO KNOWN ALLERGIES (Unverified , 12/04/21) Home Meds Active Scripts Medroxyprogesterone Acetate (Medroxyprogesterone Aceta) 10 Mg Tab, 10 MG PO DAILY, #60 TAB 0 Refills Prov:JEROD MIRANDA 01/09/23 Gabapentin (Gabapentin) 800 Mg Tab, 800 MG PO PRN, #30 TAB 0 Refills Prov:JEROD MIRANDA 01/09/23 Levofloxacin (Levaquin) 500 Mg Tab, 500 MG PO DAILY for 7 Days, #7 TAB Prov:ROSETTE LUO MD 12/10/21 Metronidazole (Flagyl) 500 Mg Tab, 500 MG PO TIDWM for 7 Days, #21 TAB Prov:ROSETTE LUO MD 12/10/21 Reported Medications Insulin Lispro (Human) (Humalog) 100 Unit/Ml Inj, SC QAM, INJ 12/04/21 Ferrous Sulfate (Iron (Ferrous Sulfate)) 50 Mg Tab, 325 MG PO DAILY, TAB 12/04/21 Insulin Glargine (Lantus) 100 Unit/Ml Inj, 24 UNIT SC DAILY, INJ 12/04/21 Metformin Hydrochloride (Metformin Hcl) 500 Mg Tab, PO DAILY for 30 Days, MG 12/04/21 Review of Systems Twelve point review of systems what are remarkable Vital Signs Vital Signs Date Time Temp Pulse Resp B/P (MAP) Pulse Ox O2 Delivery O2 Flow Rate FiO2 06/13/24 23:35 116 06/13/24 23:01 18 159/91 (113) 93 06/13/24 21:32 Room Air* 0 21 06/13/24 21:10 98.6 98.6 Physical Exam He is morbidly obese, hemodynamic clinically stable, versus 2nd heart sound without a murmur. LEs with the auscultation we will also purchase got good symmetrical peripheral pulses. There are well neurological examination is grossly intact. Labs/Diagnostic Data Labs Test 06/13/24 22:07 06/13/24 21:41 06/13/24 21:07 Range/Units Sodium Level 136 136-145 mmol/L Potassium Level 4.2 3.5-5.1 mmol/L Chloride Level 106 98-107 mmol/L Carbon Dioxide Level 23 20-31 mmol/L Anion Gap 7 5-15 Blood Urea Nitrogen 14 9-23 mg/dL Creatinine 1.03 H 0.550-1.02 mg/dL Glomerular Filtration Rate Calc 66 >90 mL/min BUN/Creatinine Ratio 13.6 10.0-20.0 Serum Glucose 395 H 74-106 mg/dL Calcium Level 9.2 8.7-10.4 mg/dL Troponin I High Sensitivity 5 </=34 ng/L Urine Color Colorless Yellow Urine Clarity Clear Clear Urine pH 5.5 5.0-9.0 Urine Specific [place] 1.026 1.001-1.035 Urine Protein 2+ H Negative Urine Ketones Negative Negative Urine Blood Negative Negative /uL Urine Nitrite Negative Negative Urine Bilirubin Negative Negative Urine Urobilinogen Normal Negative mg/dL Urine Leukocyte Esterase Negative Negative /uL Urine RBC 3 0 - 4 /hpf Urine WBC 8 0 - 5 /hpf Urine Squamous Epithelial Cells Few <5 /hpf Urine Bacteria Few H None Seen /hpf Urine Yeast (Budding) Few None Seen /hpf Urine Glucose 4+ H Normal mg/dL Urine Test Negative Negative White Blood Count 10.3 4.4-10.8 10^3/uL Red Blood Count 4.93 4.0-5.20 10^6/uL Hemoglobin 13.1 12.2-16.2 g/dL Hematocrit 40.7 36.0-46.0 % Mean Corpuscular Volume 82.5 80.0-100.0 fL Mean Corpuscular Hemoglobin 26.6 L 28.0-32.0 pg Mean Corpuscular Hemoglobin Concent 32.2 32.0-36.0 g/dL Red Cell Distribution Width 14.5 H 11.8-14.3 % Platelet Count 322 140-450 10^3/uL Mean Platelet Volume 8.3 6.9-10.8 fL Neutrophils (%) (Auto) 80.1 H 37.0-80.0 % Lymphocytes (%) (Auto) 12.3 10.0-50.0 % Monocytes (%) (Auto) 6.3 0.0-12.0 % Eosinophils (%) (Auto) 0.6 0.0-7.0 % Basophils (%) (Auto) 0.7 0.0-2.0 % Neutrophils # (Auto) 8.3 1.6-8.6 10 ^3/uL Lymphocytes # (Auto) 1.3 0.4-5.4 10 ^3/uL Monocytes # (Auto) 0.6 0-1.3 10 ^3/uL Eosinophils # (Auto) 0.1 0-0.8 10 ^3/uL Basophils # (Auto) 0.1 0-0.2 10 ^3/uL Nucleated Red Blood Cells 0.1 % Prothrombin Time 10.6 9.3-11.8 sec Prothrombin Time INR 1.00 0.9-1.15 Activated Partial Thromboplast Time 26.4 24.5-34.5 SEC B-Type Natriuretic Peptide 11.68 0-100 pg/mL Assessment high risk ACS coronary syndrome likely he would anterior ST-elevation myocardial infarction patient needs to be taken to the microbiology lab technician in a semi urgent basis for adjuvant revascularization. Total critical time spent with the patient is 130 minutes Problems(with codes): (1) Left leg pain (2) RLQ abdominal pain (3) Encounter for medication refill (4) Chest pain Plan/Recommendation Patient would need urgent cardiac catheterization given ongoing chest pain and subacute anterior septal myocardial infarction Plan discussed with: Patient Date of Service: Jun 13, 2024 Billing Provider: BERTHA DENG MD Common Visit Codes: [id number] CARE 30-74 MIN BERTHA DENG MD Jun 14, 2024 01:20
--- NOTE | 2024-06-14 01:33 | DVHOP2 ---
Operative Report -Cardiology Report Details Date: 06/14/24 Preop Diagnosis: High-risk acute coronary syndrome likely due to a subacute anteroseptal myocardial infarction. Patient has already Q-waves at the time of presentation in the antral septal leads with very subtle ST segment changes Postop Diagnosis: Patient was taken to the catheterization lab under emergency basis she had the coronary angiogram which revealed bite stenosis of the proximal LAD as well as the mid to distal part of the LAD. Both of which were treated with single drug-eluting stents. In the meantime that his distal RCA stenosis a 75% which is left for medical therapy. Surgeon: Ludin Mtz MD Anesthesiologist: Conscious sedation who is in the 25 mcg of fentanyl as well as a mg of midazolam. Was going to observation with the primary a/c technician myself in the presence of the attending nurses. Patient was monitored for a total of 135 minutes with obvious complication. Anesthesia: Local Consent: The patient was informed of the risks and benefits of the procedure. These include but are not limited to complications of anesthesia, postoperative infection, incomplete relief of symptoms, recurrence of symptoms, damage to bloo d vessels, nerves and tendons, deep venous thrombosis, pulmonary embolism and possible need for repeat surgery in the future. Indications for Surgery: This is a 53-year-old lady unfortunately she has poorly controlled diabetes as she mentioned her last hemoglobin A1c was more than 11. She present to the hospital with on and off shortness of breath with the past couple a day worsening over the past 3 hours Biotronik presentation prepped EKG in the emergency room shows anteroseptal Q-waves with mild ST segment changes. Indicating most likely a subacute anterior myocardial infarction. Given ongoing chest pain with the patient's was having of the high-risk features adequate in high PARISA score. She was taken to the phlebotomy lab assistant on urgent basis. Name of Procedure Performed 1. Left heart catheterization with left ventricular end-diastolic pressure measurement. 2. Ultrasound-guided right femoral arterial access. 3. Diagnostic coronary angiography utilizing wrapped residual approach, that was switched to right femoral approach due to severe vasospasm. 4. Primary angioplasty to the left anterior descending artery involving the proximal segment as well as distal segment using total of two drug-eluting stents. 5. Vascular closure device application to the right femoral arteriotomy site with six Angolan Angio-Seal. 6. Left femoral cineangiography indicating with the puncture site was above the bifurcation Procedure Details Procedure Details: Procedure note and vascular access: After informed consent was obtained risks, benefits, complications, and alternatives were discussed in details with patient who agrees to have the procedure done. At the beginning of the procedure of the right wrist and the right groin area was prepped and draped in the regular sterile fashion. Patient received conscious sedation with 25 mcg of fentanyl as well as a mg of the midazolam. Thereafter a likely get access was obtained using 2% xylocaine for local anesthesia. With modified Seldinger technique we are able to place a six Angolan sheath to the right radial artery. Then we place d a cocktail of 2.5 mg of verapamil as well as 100 mcg of nitroglycerin intra- arterially. Diagnostic coronary angiography was performed for the left coronary system but we could not engage the right coronary system due to severe vasospasm. For which the procedure was admitted and right femoral arterial access was obtained using ultrasound guidance. However due to severe Lantus as well as obesity we had to use a long sheath as well as super stiff wire to secure access to the right femoral groin area. Procedure was then continue it leaves initially tiger five Angolan catheter, followed by a Angelica right four Angolan catheter, and finally an XB 3-0 guiding catheter. Findings were as follows: 1. Left heart catheterization with left ventricular end-diastolic pressure measurement: With the help of fat tiger five Angolan catheter as well as the J-tube while able to cross the aortic valve and measured left ventricular end-diastolic pressure which was elevated at 12 mm Hg. There was no gradient across aortic valve on the pullback. 2. Selective right and left coronary angiography utilizing right transradial approach, this was omitted due to severe radial artery vasospasm until right femoral arteriotomy access using six Angolan sheath under ultrasound guidance lining were as follows: 1. The right coronary artery comes off the right coronary cusp it is very tortuous vessel has proximal 50-60% stenosis. Bifurcates distally into a large posterior descending artery as well as a large posterolateral branch. The posterior descending artery has a mid 75% stenosis. 2. The left main is large and widely open without significant stenosis it comes off the left coronary cusp, it bifurcates into a larger fit Duo descending artery as well as medium to large size left circumflex system. 3. Anterior descending artery is large with transapical course. It gives rise to multiple diagonal branches. After the 1st takeoff of the 2nd diagonal branch that has a tight 90% stenosis. Of the mid to distal part of the LAD that is long tubular 99% stenosis. Both of which are the culprit of patient presentation. 4. The left circumflex system has ostial 50% stenosis it is almost a codominant system with multiple obtuse marginal branches and has mild atherosclerotic plaquing but no discrete stenosis was noted. 3. Successful angioplasty to the distal as well as the proximal LAD stenosis: The diagnostic catheter was exchanged for a XB 3-0 guiding catheter. A C-arm blue wire was used, the transverse the lesions, both lesions were pre-dilated using 2.25 x 15 balloon and then were stented using 8.5 by 30 stent distally and 3.5 by 15 stent proximally with excellent final result. Anticoagulation and antiplatelet therapy during the procedure: Patient received loading dose of 180 of Brilinta she will need 90 mg p.o. b.i.d. dose for oil heaterman, in addition to baby aspirin, intravenous bivalirudin was given throughout the procedure. Closure device to the right femoral arteriotomy site, This was done under fluoroscopic guidance after confirming the puncture site abo ve bifurcation, we will place six Angolan Angio-Seal without difficulty with excellent hemostasis. However patient has coughed after the procedure add noted to have a spite of blood coming out of the arteriotomy site likely due to dislodgement of the vascular plug. Manual pressure was applied for total of 35 minutes with excellent hemostasis no obvious hematoma was noted. Impression and plan: 1. Successful intervention for subacute anteroseptal myocardial infarction with Q-wave on presentations with two drug-eluting stent to the proximal and distal LAD. 2. Difficult vascular access due to obesity, I would recommend observation of the right groin area in the regular basis add daily CBC until patient is discharged. 3. Patient would need aggressive medical therapy for all risk factors including diabetes mellitus, hypertension, hyperlipidemia, hemoglobin A1c has to be below seven and her LDL target is less than 50 mg/dL. 4. Patient will need to be on Brilinta and aspirin long-term for minimum of 12 months was single antiplatelet indefinitely. 5. Patient will need an echocardiogram to assess left ventricular systolic function at proceed with GDMT as needed Condition Good CSHA Clinical Frailty Scale CSHA Clinical Frailty Scale: Mildly Frail Stress Test Stress Test Performed: No Dominance Dominance: Co-dominant PARISA PARISA Flow: Post- Intervention (PARISA-3), Pre-Intervention (PARISA-2) Lesion Residual Stenosis post procedu: 0% Disposition LUDIN MTZ MD Jun 14, 2024 01:33
[2024-06-14] MEDS ORDERED: MORPHINE SULFATE INJ 2 MG/ml SYRG IV PRN (02:15)
[2024-06-14] MEDS ORDERED: NITROGLYCERIN 0.4 MG SL TAB SL PRN (02:15)
[2024-06-14 05:42] LABS: Basophils # (auto) 0.1 10 ^3/uL (0-0.2); Eosinophils # (auto) 0 10 ^3/uL (0-0.8); Hemoglobin 11.6 g/dL (12.2-16.2); Mean Corpuscular Volume 81.2 fL (80.0-100.0)
[2024-06-14 05:45] LABS: Basophils % (auto) 0.5 % (0.0-2.0); Eosinophils % (auto) 0.4 % (0.0-7.0); Hematocrit 35.3 % (36.0-46.0); Lymphocytes % (auto) 8.2 % (10.0-50.0); Mean Corpuscular Hemoglobin 26.7 pg (28.0-32.0); Mean Corpuscular Hgb Conc. 32.9 g/dL (32.0-36.0); Monocytes # (auto) 0.8 10 ^3/uL (0-1.3); Monocytes % (auto) 6.5 % (0.0-12.0); Neutrophils # (auto) 10.2 10 ^3/uL (1.6-8.6); Neutrophils % (auto) 84.4 % (37.0-80.0); Platelet Count (auto) 293 10^3/uL (140-450); Red Blood Cells 4.35 10^6/uL (4.0-5.20); Red Cell Distribution Width 14.5 % (11.8-14.3)
[2024-06-14] MEDS ORDERED: DEXTROSE (50%) 50ML SYRG IV PRN ×2 (08:00→11:30)
--- NOTE | 2024-06-14 08:15 | ECG ---
[facility] Test Date: 2024-06-13 Test Time: 20:35:03 Pat Name: BILLY WEBSTER Department: ED Room: 0263D Gender: F [employer]otive: : 1970 Requested By: ALEXANDRA ATKINS Order Number: [id number] Reading MD: Measurements Intervals [place] Rate: 118 P: 20 CA: 161 QRS: 15 QRSD: 90 T: 99 QT: 319 QTc: 448 Interpretive Statements Sinus tachycardia Anteroseptal infarct, acute Baseline wander in lead(s) I Please click the below link to view image of tracing.
[2024-06-14 08:28] LABS: Alanine Aminotransferase 12 U/L (7-40); Albumin 3.7 g/dL (3.2-4.8); Alkaline Phosphatase 104 U/L (46-116); Anion Gap 9 (5-15); Aspartate Aminotransferase 9 U/L (13-40); BUN/Creatinine Ratio 12.4 (10.0-20.0); Bilirubin, Total 0.6 mg/dL (0.2-1.0); Blood Urea Nitrogen 11 mg/dL (9-23); Calcium 9.4 mg/dL (8.7-10.4); Carbon Dioxide 23 mmol/L (20-31); Chloride 105 mmol/L (98-107); Cholesterol 179 mg/dL (< 200); Glucose 382 mg/dL (74-106); HDL Cholesterol 60 mg/dL (40-59); LDL Cholesterol 95 mg/dL (< 100); Magnesium 1.6 mg/dL (1.6-2.6); Sodium 137 mmol/L (136-145); Triglycerides 188 mg/dL (< 150)
[2024-06-14 08:29] LABS: Total Protein 6.5 g/dL (5.7-8.2)
[2024-06-14] MEDS: ASPirin 81 mg TAB PO SCH (08:59)
[2024-06-14] MEDS: cefTRIAXone 1GM/50ML D5W 50 ML IV SCH (08:59)
[2024-06-14] MEDS: LISINOPRIL 5 MG TAB PO SCH (09:00)
[2024-06-14] MEDS: METOPROLOL SUCCINATE XL 50 MG TAB PO SCH (09:00)
[2024-06-14] MEDS: TICAGRELOR 90 MG TAB PO SCH (09:00)
--- NOTE | 2024-06-14 09:26 | DVHPN2 ---
Consult Progress Note Date Seen: Jun 14, 2024 Subjective Review of Systems: CVS:Normal, RESPIRATORY:Normal, NEURO:Abnormal Other Systems: C/o RECIO. Otherwise cardiac stable Objective vital signs Vital Sign Date Time Temp Pulse Resp B/P (MAP) Pulse Ox O2 Delivery O2 Flow Rate FiO2 06/14/24 09:00 179/82 06/14/24 09:00 101 06/14/24 08:01 98.6 18 92 98.6 06/14/24 08:00 Room Air* 0 21 Total Intake and Output 06/13/24 06/13/24 06/14/24 15:00 23:00 07:00 Intake Total 420 ml Balance 420 ml medications Current Medications Medications Dose Ordered Sig/Pepe Route Start Time Stop Time Status Last Admin Dose Admin Nitroglycerin 0.4 mg Q5MINP PRN SL 06/14/24 02:15 Morphine Sulfate 2 mg Q30M PRN IV 06/14/24 02:15 Ticagrelor 90 mg BID PO 06/14/24 10:00 06/14/24 09:00 90 MG Metoprolol Succinate 25 mg DAILY PO 06/14/24 10:00 06/14/24 09:00 25 MG Aspirin 81 mg DAILY PO 06/14/24 10:00 06/14/24 08:59 81 MG Hydralazine HCl 10 mg Q6HP PRN IV 06/14/24 08:00 Ceftriaxone Sodium 50 ml @ 100 mls/hr DAILY@09 IV 06/14/24 09:00 06/14/24 08:59 100 MLS/HR Diagnostic Test (Pha) 1 strip ACHS 06/14/24 11:30 Insulin Human Regular HS SC 06/14/24 22:00 Insulin Human Regular AC SC 06/14/24 11:30 Dextrose 50 ml UD PRN IV 06/14/24 08:00 Lisinopril 10 mg DAILY PO 06/14/24 10:00 06/14/24 09:00 10 MG Examination: LUNGS:Normal, CVS:Normal, NEURO:Normal laboratory and microbiology Laboratory Tests 06/14/24 05:07 Test 06/14/24 05:07 Range/Units Serum Glucose 382 H 74-106 mg/dL Problem List/Assessment/Plan Problem List/Assessment/Plan Evolved anteroseptal ST-elevation myocardial infarction Coronary artery disease status post PCI to the LAD x 1 GAGAN Insulin-dependent diabetes mellitus, uncontrolled HgbA1C >14.0 Hypertension Dyslipidemia Yeast infection Morbid obesity Plan/Recommendation (Dr. Deng) * Echocardiogram to evaluate cardiac function * Lipid-lowering agent, BB, and DAPT with Brillinta uninterrupted x 1 year * Aggressive blood pressure control including BB * Replete electrolytes as necessary, mg replacement * Repeat CXR portable * Risk factor modifications, counseled * Tight glycemic control, Mediterranean diet, exercise as tolerated, weigh loss * Follow-up with Cardiology at [facility] within 1-2 weeks post-discharge Thank you for allowing us to care for this patient. Kindly call with any questions or concerns. Plan discussed with: Patient, Other Date of Service: Jun 14, 2024 Billing Provider: BERTHA DENG MD Cardiology Common Codes: [id number] [facility] GUEVARADIEGO [facility] Jun 14, 2024 09:26
[2024-06-14] MEDS: FLUCONAZOLE 100 MG TAB PO SCH (09:55)
[2024-06-14] MEDS: MAGNESIUM SULFATE 1GM/100ML 100 ML IV ONE (09:55)
--- NOTE | 2024-06-14 10:16 | DVH ---
CHEST RADIOGRAPH Indication:Nodular opacity Technique: Single frontal view of the chest was obtained COMPARISON: XY CHEST PORTABLE on DOS: 06/13/24, CHEST PORTABLE on DOS: 12/04/21, CXRP on DOS: 12/04/21 FINDINGS: Lines and Tubes: None Lungs: Clear . The previously described left lower lobe nodular opacity is not clearly delineated. Pleura: No effusion. No pneumothorax. Cardiomediastinal contours: Unremarkable Bones: Unremarkable IMPRESSION: 1. No acute disease. 2. The previously described left lower lobe nodular opacity is not clearly delineated
[2024-06-14] MEDS: hydrALAZINE HCL 20 MG/ML VL IV PRN (10:56)
[2024-06-14] MEDS: ACCU-CHEK COMFORT CURVE STRIP VI SCH ×2 (11:24→11:30)
[2024-06-14] MEDS: InsuLIN REG 1unit/0.01ml Soln (100units/ml) SC SCH ×3 (11:25→21:07)
[2024-06-14] MEDS: INSULIN LANTUS (GLARGINE) 1 /0.01ml (100units/ml) SC SCH (11:30)
--- NOTE | 2024-06-14 11:46 | DVHDS2 ---
Discharge Summary Date of Admission Jun 14, 2024 at 02:10 Date of Discharge: Jun 14, 2024 Admitting Diagnosis STEMI involving LAD Labs/Diagnostic Data: Laboratory Results Test 06/14/24 05:07 06/13/24 22:07 06/13/24 21:41 06/13/24 21:07 White Blood Count 12.0 10^3/uL (4.4-10.8) Red Blood Count 4.35 10^6/uL (4.0-5.20) Hemoglobin 11.6 g/dL (12.2-16.2) Hematocrit 35.3 % (36.0-46.0) Mean Corpuscular Volume 81.2 fL (80.0-100.0) Mean Corpuscular Hemoglobin 26.7 pg (28.0-32.0) Mean Corpuscular Hemoglobin Concent 32.9 g/dL (32.0-36.0) Red Cell Distribution Width 14.5 % (11.8-14.3) Platelet Count 293 10^3/uL (140-450) Mean Platelet Volume 8.3 fL (6.9-10.8) Neutrophils (%) (Auto) 84.4 % (37.0-80.0) Lymphocytes (%) (Auto) 8.2 % (10.0-50.0) Monocytes (%) (Auto) 6.5 % (0.0-12.0) Eosinophils (%) (Auto) 0.4 % (0.0-7.0) Basophils (%) (Auto) 0.5 % (0.0-2.0) Neutrophils # (Auto) 10.2 10 ^3/uL (1.6-8.6) Lymphocytes # (Auto) 1.0 10 ^3/uL (0.4-5.4) Monocytes # (Auto) 0.8 10 ^3/uL (0-1.3) Eosinophils # (Auto) 0 10 ^3/uL (0-0.8) Basophils # (Auto) 0.1 10 ^3/uL (0-0.2) Nucleated Red Blood Cells 0.0 % Sodium Level 137 mmol/L (136-145) Potassium Level 4.0 mmol/L (3.5-5.1) Chloride Level 105 mmol/L (98-107) Carbon Dioxide Level 23 mmol/L (20-31) Anion Gap 9 (5-15) Blood Urea Nitrogen 11 mg/dL (9-23) Creatinine 0.89 mg/dL (0.550-1.02) Glomerular Filtration Rate Calc 78 mL/min (>90) BUN/Creatinine Ratio 12.4 (10.0-20.0) Serum Glucose 382 mg/dL (74-106) Hemoglobin A1c > 14.0 % A1C (<5.7) Calcium Level 9.4 mg/dL (8.7-10.4) Magnesium Level 1.6 mg/dL (1.6-2.6) Total Bilirubin 0.6 mg/dL (0.2-1.0) Aspartate Amino Transferase (AST) 9 U/L (13-40) Alanine Aminotransferase (ALT) 12 U/L (7-40) Alkaline Phosphatase 104 U/L (46-116) Total Protein 6.5 g/dL (5.7-8.2) Albumin 3.7 g/dL (3.2-4.8) Triglycerides Level 188 mg/dL (< 150) Cholesterol Level 179 mg/dL (< 200) LDL Cholesterol 95 mg/dL (< 100) HDL Cholesterol 60 mg/dL (40-59) Thyroid Stimulating Hormone (TSH) 1.54 uIU/mL (0.55-4.78) Troponin I High Sensitivity 5 ng/L (</=34) Urine Color Colorless (Yellow) Urine Clarity Clear (Clear) Urine pH 5.5 (5.0-9.0) Urine Specific [place] 1.026 (1.001-1.035) Urine Protein 2+ (Negative) Urine Ketones Negative (Negative) Urine Blood Negative /uL (Negative) Urine Nitrite Negative (Negative) Urine Bilirubin Negative (Negative) Urine Urobilinogen Normal mg/dL (Negative) Urine Leukocyte Esterase Negative /uL (Negative) Urine RBC 3 /hpf (0 - 4) Urine WBC 8 /hpf (0 - 5) Urine Squamous Epithelial Cells Few /hpf (<5) Urine Bacteria Few /hpf (None Seen) Urine Yeast (Budding) Few /hpf (None Seen) Urine Glucose 4+ mg/dL (Normal) Urine Test Negative (Negative) Prothrombin Time 10.6 sec (9.3-11.8) Prothrombin Time INR 1.00 (0.9-1.15) Activated Partial Thromboplast Time 26.4 SEC (24.5-34.5) B-Type Natriuretic Peptide 11.68 pg/mL (0-100) Other Laboratory Tests 06/14/24 05:07 Brief Hx & Hospital Course: The patient was a 53-year-old female presenting to the emergency room complaints of substernal chest pain. Patient was assessed, diagnosed with STEMI, and taken to the cardiac catheterization lab. Patient was found to have multivessel disease with the culprit lesion found to be the patient's LAD. Patient was subsequently underwent PTCA and stent placement to will proximal and distal LAD. Patient had failure of closure device to right femoral artery with manual pressure being held. Patient was assessed postoperatively in the step-down ICU, found to have no hematoma, some ecchymosis to insertion site. Patient was also found to have hemoglobin A1c greater than 14. Discussion was made with the patient regarding her treatment of diabetes mellitus, and states that her blood sugars are not controlled at home. Patient was also found to be hypertensive, with a systolic blood pressure greater than 170. Patient has been reassessed by Cardiology, and has been downgraded to telemetry status. Patient is currently without any chest pain, and hemodynamically stable. Patient is stable to be transferred to [facility] for further management. Physical exam General: Alert and Oriented x3. No acute distress. Well-nourished. Obese Eyes: EOMI. Anicteric. HENT: Moist mucous membranes. Lungs: Clear to auscultation bilaterally. No accessory muscle use. Cardiovascular: Regular rate and rhythm. No murmur. No JVD. Abdomen: Soft, non-tender and non-distended. No palpable masses. Extremities: No edema. Non-tender. Skin: No rashes or lesions. Warm. Neurologic: No focal neurological deficits. CN II-XII grossly intact, but not individually tested. Psychiatric: Cooperative. Appropriate mood and affect. Total time spent with patient discussing and formulating plan of care: 35 minutes. This medical document was created using an electronic medical record system with [employer] dictation system. Although this document has been carefully reviewed, there may still be some phonetic and typographical errors. These areas are purely typographical due to imperfections of the software programs, and do not reflect any compromise in the patient's medical care. Consults/Reason for consult Cardiology: STEMI Operations or Procedures 06/13/2024: Left heart catheterization with PTCA and stent placement to LAD Condition at Discharge: Guarded Final Diagnosis/Problems List STEMI involving LAD Secondary Diagnosis: Diabetes mellitus Obesity Diabetic neuropathy Leukocytosis Dyslipidemia Discharge Disposition: Acute Care Facility Discharge Instruct/Medications Diet: Consistent carbohydrate, Cardiac 2g Na,low cholest Activity: See Comment Activity comment: Do not lift anything greater than 5 lb for two weeks Follow Up/Referral: Recommend to follow up with [place] [employer] forming machine tender regarding future treatment for RCA and diagonal lesion Medications: Continue all medications per medication reconciliation form 36 Discharge Statement: "Patient was advised to return to the ER or call 911 if any headaches, dizziness, shortness of breath, chest pain, abdominal pain, bleeding, fevers, or worsening of medical condition. Patient was counseled about treatment plan, medications, possible side effects, patientverbalized understanding. All questions were answered to the best of my ability. This discharge took greater then 30 minutes in planning, reviewing documentation, counseling the patient, and discussing with other team members." ASSESSMENT ASSESSMENT Assessment STEMI involving LAD Date of Service: Jun 14, 2024 Billing Provider: TERRY ROMO NP Common Visit Codes: 59888-WXR/OBS DISCH DAY >30min TERRY ROMO NP Jun 14, 2024 11:46
--- NOTE | 2024-06-14 15:19 | DVHSR ---
APPROVED REPORT EXAM: Two-dimensional and M-mode echocardiogram with Doppler and color Doppler. Blood Pressure: 169/91 mmHg INDICATION STEMI RISK FACTORS Height: 63, Weight: 212 DIMENSIONS LVDd3.7 (3.8-5.7cm)LA (2D)4.0 (1.9-4.0cm)Aortic Root3.0 (2.0-3.7cm) LVDs2.4 (2.5-4.0cm)LA (MM) (1.9-4.0cm)Aortic Cusp Exc2.0 (1.5-2.0cm) EF (%) 65.0 (55-70%)Rt. Atrium (1.9-4.0cm)Asc. Aorta cm IVSd1.5 (0.7-1.1cm)RV (D) (1.8-2.4cm) PWd1.5 (0.7-1.1cm) Mitral Valve MitralMitral Stenosis E wave0.76m/sMV Mean GR.mmHg A wave0.93m/sMV Peak GR.mmHg E/A ratio0.82D MVAcm2 DECEL [id number] 1/2 Timems Aortic Valve Aortic ValveAortic Stenosis V11.17m/Adrian Mean GR.5mmHg V21.40m/Adrian Peak GR.8mmHg LVOT Diameter1.8 (1.8-2.4cm)Doppler AVA2.13cm2 Pulmonic Valve V20.99m/s Other Information Technically limited study due to body habitus. Conclusion Normal left ventricular size and dimension. Normal left ventricular systolic function estimated ejec tion fraction of 55%. There is a grade 1 diastolic dysfunction. Normal right ventricular size and dimension. Normal right ventricular systolic function. Normal biatrial size and dimension. Normal aortic valve structure and function. Normal mitral valve structure and function. Normal tricuspid valve structure and function. The pulmonary valve is grossly normal. No pericardial.
[2024-06-14] MEDS: HEPARIN SODIUM (PORCINE) 5000 UNITS/ML 1ML VIAL ONE (18:40)
[2024-06-14] MEDS: SODIUM CHL 0.9% 50 ML ONE (18:40)
[2024-06-14] MEDS: ANGIOMAX 250 MG VIAL IV ONE (18:40)
[2024-06-14] MEDS: IODIXANOL 320MG/ML 100ML BTL IV ONE (18:40)
[2024-06-14] MEDS: TICAGRELOR 90 MG TAB ONE (18:41)
[2024-06-14] MEDS: PREGABALIN CAPSULE 75 MG CAP PO SCH (21:14)
[2024-06-14] MEDS ORDERED: InsuLIN REG 1unit/0.01ml Soln (100units/ml) SC SCH (22:00)
[2024-06-14] MEDS: CARBAMIDE PEROXIDE 6.5% OTIC(EAR) SOLN 15ML EACH EAR SCH (22:00)
[2024-06-15 01:00] VITALS: BP 132/86; PULSE 111; RESP 21; TEMP 99; O2SAT 100
[2024-06-15 05:00] VITALS: BP 143/84; PULSE 90; RESP 22; TEMP 98.1; O2SAT 98
[2024-06-15 08:00] VITALS: PULSE 96
[2024-06-15 09:00] VITALS: BP 97/49; PULSE 79; RESP 17; TEMP 98; O2SAT 98
[2024-06-15] MEDS ORDERED: TICA90TA PO (10:35)
[2024-06-15] MEDS ORDERED: ATOR40TA52 PO (10:35)
[2024-06-15] MEDS ORDERED: ASPI-325 PO (10:35)
--- NOTE | 2024-06-15 11:27 | DVHPN2 ---
Consult Progress Note Date Seen: Jun 15, 2024 Subjective Review of Systems: CVS:Normal, RESPIRATORY:Normal, NEURO:Normal Objective vital signs Vital Sign Date Time Temp Pulse Resp B/P (MAP) Pulse Ox O2 Delivery O2 Flow Rate FiO2 06/15/24 09:48 97/49 06/15/24 09:48 79 06/15/24 09:00 98.0 17 98 98.0 06/14/24 20:00 Room Air* 0 21 Total Intake and Output 06/14/24 06/14/24 06/15/24 15:00 23:00 07:00 Intake Total 270 ml 240 ml 1150 ml Output Total 550 ml Balance 270 ml 240 ml 600 ml medications Current Medications Medications Dose Ordered Sig/Pepe Route Start Time Stop Time Status Last Admin Dose Admin Nitroglycerin 0.4 mg Q5MINP PRN SL 06/14/24 02:15 Morphine Sulfate 2 mg Q30M PRN IV 06/14/24 02:15 Ticagrelor 90 mg BID PO 06/14/24 10:00 06/15/24 09:47 90 MG Metoprolol Succinate 25 mg DAILY PO 06/14/24 10:00 06/14/24 09:00 25 MG Aspirin 81 mg DAILY PO 06/14/24 10:00 06/15/24 09:47 81 MG Hydralazine HCl 10 mg Q6HP PRN IV 06/14/24 08:00 06/14/24 10:56 10 MG Ceftriaxone Sodium 50 ml @ 100 mls/hr DAILY@09 IV 06/14/24 09:00 06/15/24 09:48 100 MLS/HR Lisinopril 10 mg DAILY PO 06/14/24 10:00 06/14/24 09:00 10 MG Fluconazole 100 mg DAILY PO 06/14/24 10:00 06/15/24 09:47 100 MG Diagnostic Test (Pha) 1 strip ACHS 06/14/24 11:30 06/15/24 06:02 1 STRIP Insulin Human Regular AC SC 06/14/24 11:30 06/15/24 06:05 8 UNITS Insulin Human Regular HS SC 06/14/24 22:00 06/14/24 21:07 4 UNITS Dextrose 50 ml UD PRN IV 06/14/24 11:30 Insulin Glargine 28 units DAILY@1000 SC 06/14/24 11:30 06/15/24 10:13 28 UNITS Carbamide Peroxide 5 drop Q12HR EACH EAR 06/14/24 22:00 06/15/24 09:51 5 DROP Pregabalin 150 mg BID PO 06/14/24 22:00 06/15/24 09:47 150 MG Examination: LUNGS:Normal, CVS:Normal, NEURO:Normal laboratory and microbiology Laboratory Tests 06/14/24 05:07 Test 06/14/24 05:07 Range/Units Serum Glucose 382 H 74-106 mg/dL Problem List/Assessment/Plan Problem List/Assessment/Plan Evolved anteroseptal ST-elevation myocardial infarction Coronary artery disease status post PCI to the LAD x 1 GAGAN Insulin-dependent diabetes mellitus, uncontrolled HgbA1C >14.0 Hypertension Dyslipidemia Yeast infection Morbid obesity Plan/Recommendation (Dr. Deng) * Echocardiogram revealed EF 55% * Lipid-lowering agent, BB, and DAPT with Brillinta uninterrupted x 1 year * Aggressive blood pressure control including BB * Risk factor modifications, counseled * Tight glycemic control, Mediterranean diet, exercise as tolerated, weigh loss * Follow-up with Cardiology at [facility] within 1-2 weeks post-discharge There is no further cardiac workup indicated at this time. Thank you for allowing us to care for this patient. Kindly call with any questions or concerns. This medical document was created using an electronic medical record system with voice recognition software and computerized dictation system. Although this document has been carefully reviewed, there might still be some phonetic and typographical errors. Occasional wrong-word or ``sound-alike substitutions may have occurred due to the inherent limitations of voice recognition software. These areas are purely typographical due to imperfections of the software programs and do not reflect any compromise in the patient's medical care. Please read the chart carefully and recognize, using context, where these substitutions have occurred. Plan discussed with: Patient, Spouse, Other Date of Service: Jun 15, 2024 Billing Provider: BERTHA DENG MD Cardiology Common Codes: [id number] INP/OBS CARE(Mod) [facility] Jun 15, 2024 11:27
--- NOTE | 2024-06-15 12:21 | ECG ---
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
[2024-06-15 13:00] VITALS: BP 117/75; PULSE 60; RESP 18; TEMP 97.6; O2SAT 94
[2024-06-15 14:21] LABS: Basophils # (auto) 0.1 10 ^3/uL (0-0.2); Eosinophils # (auto) 0.1 10 ^3/uL (0-0.8); Hemoglobin 11.6 g/dL (12.2-16.2); Monocytes # (auto) 0.6 10 ^3/uL (0-1.3)
[2024-06-15 14:25] LABS: Basophils % (auto) 0.7 % (0.0-2.0); Eosinophils % (auto) 1.3 % (0.0-7.0); Hematocrit 34.8 % (36.0-46.0); Lymphocytes # (auto) 1.3 10 ^3/uL (0.4-5.4); Lymphocytes % (auto) 13.4 % (10.0-50.0); Mean Corpuscular Hemoglobin 27.1 pg (28.0-32.0); Mean Corpuscular Hgb Conc. 33.4 g/dL (32.0-36.0); Mean Corpuscular Volume 81.1 fL (80.0-100.0); Monocytes % (auto) 6.5 % (0.0-12.0); Neutrophils # (auto) 7.4 10 ^3/uL (1.6-8.6); Neutrophils % (auto) 78.1 % (37.0-80.0); Platelet Count (auto) 315 10^3/uL (140-450); Red Blood Cells 4.29 10^6/uL (4.0-5.20); Red Cell Distribution Width 15.1 % (11.8-14.3); White Blood Cell 9.4 10^3/uL (4.4-10.8)
[2024-06-15 14:29] LABS: Alanine Aminotransferase 10 U/L (7-40); Albumin 3.8 g/dL (3.2-4.8); Alkaline Phosphatase 110 U/L (46-116); Anion Gap 4 (5-15); Aspartate Aminotransferase 10 U/L (13-40); BUN/Creatinine Ratio 13.5 (10.0-20.0); Blood Urea Nitrogen 12 mg/dL (9-23); Calcium 9.4 mg/dL (8.7-10.4); Carbon Dioxide 28 mmol/L (20-31); Chloride 105 mmol/L (98-107); Glucose 329 mg/dL (74-106); Magnesium 1.8 mg/dL (1.6-2.6); Potassium 3.5 mmol/L (3.5-5.1); Sodium 137 mmol/L (136-145)
[2024-06-15 14:30] LABS: Bilirubin, Total 0.4 mg/dL (0.2-1.0); Total Protein 6.6 g/dL (5.7-8.2)
--- NOTE | 2024-06-15 14:43 | ECG ---
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
[2024-06-15 17:00] VITALS: BP 116/82; PULSE 92; RESP 17; TEMP 98.1; O2SAT 94
== END 2024-06-15 19:25 | disposition home or self-care (01) | DRG 174 ==
LOC: ER 20:31 → EDBD 20:31 → ER 23:41 → DOU IN ICU 06-14 02:10 → TELE 06-14 02:10 → DOU IN ICU 06-14 02:35 → TELE-CENTR 06-14 17:16
PROVIDERS: ADMIT Student in an Organized Health Care Education/Training Program; ATTEND Nurse Practitioner Acute Care
PROC: 027035Z Dilation of Coronary Artery, One Artery with Two Drug-eluting Intraluminal Devices, Percutaneous Approach (ICD-10-PCS; principal; 2024-06-14)
PROC: B211YZZ Fluoroscopy of Multiple Coronary Arteries using Other Contrast (ICD-10-PCS; 2024-06-14)
PROC: 4A023N7 Measurement of Cardiac Sampling and Pressure, Left Heart, Percutaneous Approach (ICD-10-PCS; 2024-06-14)
PROC: B44FZZZ Ultrasonography of Right Lower Extremity Arteries (ICD-10-PCS; 2024-06-14)
PROC: B41GYZZ Fluoroscopy of Left Lower Extremity Arteries using Other Contrast (ICD-10-PCS; 2024-06-14)
PROC: B215YZZ Fluoroscopy of Left Heart using Other Contrast (ICD-10-PCS; 2024-06-14)
DX: I21.02 ST elevation (STEMI) myocardial infarction involving left anterior descending coronary artery (principal); E11.40 Type 2 diabetes mellitus with diabetic neuropathy, unspecified; D72.829 Elevated white blood cell count, unspecified; E66.01 Morbid (severe) obesity due to excess calories; B37.9 Candidiasis, unspecified; E78.5 Hyperlipidemia, unspecified; Z83.3 Family history of diabetes mellitus; Z95.5 Presence of coronary angioplasty implant and graft; Z82.49 Family history of ischemic heart disease and other diseases of the circulatory system; Z80.3 Family history of malignant neoplasm of breast; Z80.0 Family history of malignant neoplasm of digestive organs; Z79.899 Other long term (current) drug therapy; Z79.82 Long term (current) use of aspirin; Z79.4 Long term (current) use of insulin; Z79.02 Long term (current) use of antithrombotics/antiplatelets; Z68.38 Body mass index [BMI] 38.0-38.9, adult
CPT/HCPCS: 36415; 71045; 75710; 80048; 80053; 80061; 81001; 81025; 82962; 83036; 83735; 83880; 84443; 84484; 85025; 85610; 85730; 86850; 86900; 86901; 87081; 92941; 93005; 93306; 93458; 99152; 99291; C1894; G0378; J1815; J2250; Q9967

== ENCOUNTER 2024-09-22 18:34 | Emergency (ER) | payer MEDICAID ==
[~2024-09-22] VITALS: Ht 172.7 cm; Wt 100.0 kg
[~2024-09-22 18:34] MED LIST changes: +ASPI-325 PO; +ATOR40TA52 PO; -LEVO500T31 PO; -METR500T PO; +TICA90TA PO
[2024-09-22 18:49] VITALS: BP 174/96; PULSE 96; RESP 18; O2SAT 99
--- NOTE | 2024-09-22 18:59 | ED.PDOC ---
GI ASSESSMENT HPI Comments 53 year old female brought in by EMS presents to the ED with a chief complaint of constipation onset 7 days. Per EMS, patient was experiencing constipation for the past 7 days, was trying to have a bowel movement when she began experiencing abdominal pain, dizziness as well as generalized weakness. Patient states she has taken magnesium drink to improve constipation but has not helped. Upon EMS arrival patient's BG was 445. PMHx DM, CVA, HTN, UT, CHF. Denies chest pain, shortness of breath, headache, blurry vision, diarrhea, nausea, vomiting, dysuria, hematuria, fevers. No other symptoms or modifying factors present at this time. Time Seen by MD: 18:40 Primary Care Provider: NONE Reviewed Notes: Medications, Allergies Allergies: Coded Allergies: NO KNOWN ALLERGIES (Unverified , 12/04/21) Home Meds Active Scripts Atorvastatin Calcium (ATORVASTATIN CALCIUM) 40 Mg Tab, 1 TAB PO DAILY for 60 Days, #60 TAB 5 Refills Prov:TERRY ROMO NP 06/15/24 Ticagrelor Base (BRILINTA) 90 Mg Tab, 90 MG PO BID for 60 Days, #120 TAB 2 Refills Prov:TERRY ROMO NP 06/15/24 Aspirin (Aspirin Low Dose) 81 Mg Tab, 81 MG PO DAILY for 60 Days, #60 TAB 2 Refills Prov:TERRY ROMO NP 06/15/24 Medroxyprogesterone Acetate (Medroxyprogesterone Aceta) 10 Mg Tab, 10 MG PO DAILY, #60 TAB 0 Refills Prov:JEROD MIRANDA 01/09/23 Gabapentin (Gabapentin) 800 Mg Tab, 800 MG PO PRN, #30 TAB 0 Refills Prov:JEROD MIRANDA 01/09/23 Reported Medications Insulin Lispro (Human) (Humalog) 100 Unit/Ml Inj, SC QAM, INJ 12/04/21 Ferrous Sulfate (Iron (Ferrous Sulfate)) 50 Mg Tab, 325 MG PO DAILY, TAB 12/04/21 Insulin Glargine (Lantus) 100 Unit/Ml Inj, 24 UNIT SC DAILY, INJ 12/04/21 Metformin Hydrochloride (Metformin Hcl) 500 Mg Tab, PO DAILY for 30 Days, MG 12/04/21 Information Source: Patient, Emergency Med Personnel Mode of Arrival: EMS Timing: Weeks Duration: Since onset Prehospital treatment: None Severity: Moderate Recent: Laxative Use Recent Hx of: Constipation Pain Location: Diffuse Modifying Factors: Nothing Associated sign and symptoms: Constipation, Abdominal Pain Past Medical History PAST MEDICAL HISTORY: CHF, CVA, DM, HTN, UT 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, Uterine Fibroids Family History Family History: Reviewed,noncontributory to illness Social History Smoker: Non-Smoker Alcohol: Denies ETOH Use Drugs: Denies Drug Use Lives In: Home Constitutional: reports: weakness; denies: chills, diaphoresis, fatigue, fever, malaise, sweats, others EENTM: denies: blurred vision, double vision, ear bleeding, ear discharge, ear drainage, ear pain, ear ringing, eye pain, eye redness, hearing loss, mouth pain, mouth swelling, nasal discharge, nose bleeding, nose congestion, nose pain, photophobia, tearing, throat pain, throat swelling, voice changes, others Respiratory: denies: cough, hemoptysis, orthopnea, SOB at rest, shortness of breath, SOB with excertion, stridor, wheezing, others Cardiovascular: denies: chest pain, dizzy spells, diaphoresis, Dyspnea on exertion, edema, irregular heart beat, left arm pain, lightheadedness, p alpitations, PND, syncope, others Gastrointestinal: reports: abdominal pain, constipated; denies: abdomen distended, blood streaked bowels, diarrhea, dysphagia, difficulty swallowing, hematemesis, melena, nausea, poor appetite, poor fluid intake, rectal bleeding, rectal pain, vomiting, others Genitourinary: denies: abnormal vagina bleeding, burning, dyspareunia, dysuria, flank pain, frequency, hematuria, incontinence, pain, , vagina discharge, urgency, others Neurological: reports: dizziness, weakness; denies: fainting, headache, left sided numbness, left sided weakness, numbness, paresthesia, pre-existing deficit, right sided numbness, right sided weakness, seizure, speech problems, tingling, tremors, others Musculoskeletal: denies: back pain, gout, joint pain, joint swelling, muscle pain, muscle stiffness, neck pain, others Integumetry: denies: bruises, change in color, change in hair/nails, dryness, laceration, lesions, lumps, rash, wounds, others Allergic/Immunocompromised: denies: Difficulty Healing, Frequent Infections, Hives, Itching, others Hematologic/Lymphatic: denies: anemia, blood clots, easy bleeding, easy bruising, swollen glands, others Endocrine: denies: excessive hunger, excessive sweating, excessive thirst, excessive urination, flushing, intolerance to cold, intolerance to heat, unexplained weight gain, unexplained weight loss, others Psychiatric: denies: anxiety, bipolar disorder, depression, hopeless, panic disorder, schizophrenia, sleepless, suicidal, others All Other Systems: Reviewed and Negative Physical Exam General Appearance: No Apparent Distress, Normal HEENT: Normal ENT Inspection, Pharynx Normal, TMs Normal Neck: Full Range of Motion, Non-Tender, Normal, Normal Inspection Respiratory: Chest Non-Tender, Lungs Clear, No Accessory Muscle Use, No Respiratory Distress, Normal Breath Sounds Cardiovascular: No Edema, No JVD, No Murmur, No Gallop, Normal Peripheral Pulses, Regular Rate/Rhythm Breast Exam: Deferred Gastrointestinal: No Organomegaly, Non Tender, No Pulsatile Mass, Normal Bowel Sounds, Soft Genitalia: Deferred Pelvic: Deferred Rectal: Deferred Extremities: No calf tenderness, Normal capillary refill, Normal inspection, Normal range of motion, Non-tender, No pedal edema Musculoskeletal : Apperance: Normal Neurologic: Alert, tire curer II-XII nml as Tested, No Motor Deficits, Normal Affect, Normal Mood, No Sensory Deficits Cerebellar Function: Normal Reflexes: Normal Skin: Dry, Normal Color, Warm Lymphatic: No Adenopathy Was a procedure done? Was a procedure done?: No X-Ray, Labs, Meds, VS Vital Signs Date Time Temp Pulse Resp B/P (MAP) Pulse Ox O2 Delivery O2 Flow Rate FiO2 09/22/24 18:49 98.5 96 18 174/96 (122) 99 Lab Test 09/22/24 19:19 Range/Units White Blood Count 7.3 4.4-10.8 10^3/uL Red Blood Count 4.71 4.0-5.20 10^6/uL Hemoglobin 11.0 L 12.2-16.2 g/dL Hematocrit 35.6 L 36.0-46.0 % Mean Corpuscular Volume 75.7 L 80.0-100.0 fL Mean Corpuscular Hemoglobin 23.4 L 28.0-32.0 pg Mean Corpuscular Hemoglobin Concent 31.0 L 32.0-36.0 g/dL Red Cell Distribution Width 15.9 H 11.8-14.3 % Platelet Count 402 140-450 10^3/uL Mean Platelet Volume 8.6 6.9-10.8 fL Neutrophils (%) (Auto) 76.4 37.0-80.0 % Lymphocytes (%) (Auto) 15.9 10.0-50.0 % Monocytes (%) (Auto) 5.4 0.0-12.0 % Eosinophils (%) (Auto) 1.3 0.0-7.0 % Basophils (%) (Auto) 1.0 0.0-2.0 % Neutrophils # (Auto) 5.6 1.6-8.6 10 ^3/uL Lymphocytes # (Auto) 1.2 0.4-5.4 10 ^3/uL Monocytes # (Auto) 0.4 0-1.3 10 ^3/uL Eosinophils # (Auto) 0.1 0-0.8 10 ^3/uL Basophils # (Auto) 0.1 0-0.2 10 ^3/uL Nucleated Red Blood Cells 0.1 % Sodium Level 135 L 136-145 mmol/L Potassium Level 4.3 3.5-5.1 mmol/L Chloride Level 100 98-107 mmol/L Carbon Dioxide Level 26 20-31 mmol/L Anion Gap 9 5-15 Blood Urea Nitrogen 23 9-23 mg/dL Creatinine 1.26 H 0.550-1.02 mg/dL Glomerular Filtration Rate Calc 52 >90 mL/min BUN/Creatinine Ratio 18.3 10.0-20.0 Serum Glucose 472 *H 74-106 mg/dL Calcium Level 10.0 8.7-10.4 mg/dL [facility] [id number] [place] [id number] Ph: [phone] DIAGNOSTIC IMAGING Diagnostic Imaging Report : [id number] Signed PATIENT: BILLY WEBSTER ACCT: [id number] UNIT: [id number] : 1970 LOC: ER ROOM / BED: / AGE / SEX: 53 / F ADM STATUS: REG ER SERVICE 00 ORDERING PHYSICIAN: KARLIE GOMEZ MD PROCEDURE(s): KUB - KUB ABDOMEN SINGLE VIEW REASON: abdominal pain ORDER NUMBER(s): [id number], ACCESSION NUMBER(s): [id number] Date: 09/22/2024 07:05 PM Examination: XY KUB ABDOMEN SINGLE VIEW History: abdominal pain Comparison: None TECHNIQUE: Frontal views of the abdomen was obtained. FINDINGS: Bowel gas pattern is unremarkable. The lung bases are unremarkable. No acute osseous abnormality identified. IMPRESSION: 1. Nonobstructive bowel gas pattern. ATED BY: RIAZ JONES Jr., DO DICTATED DATE/TIME: 09/22/241924 SIGNED BY: RIAZ JONES Jr., SIGNED DATE/TIME: 09/22/241924 CC: Time of 1ST Reevaluation: 19:10 Reevaluation 1ST: Unchanged Patient Education/Counseling: Diagnosis, Treatment, Prognosis Family Education/Counseling: No Family Present Additional Information The following tests were ordered, and results were reviewed by me: BMP, CBC, XY KUB ABDOMEN SINGLE VIEW Additional Information was gathered from interviewing the following independent historians: EMS I reviewed and agreed with the following test results read by other providers: XY KUB ABDOMEN SINGLE VIEW I discussed treatment and results with medical personnel and: patient Critical Care Note Critical Care Time?: No Stability Stability form required: No I personally scribed for KARLIE GOMEZ MD ([email or web address]) on 09/22/24 at 18:59. Electronically submitted by Barbara Pruitt ([email or web address]). I personally scribed for KARLIE GOMEZ MD ([email or web address]) on 09/22/24 at 19:26. Electronically submitted by Barbara Pruitt ([email or web address]). I personally scribed for KARLIE GOMEZ MD ([email or web address]) on 09/22/24 at 19:59. Electronically submitted by Barbara Pruitt ([email or web address]). I personally scribed for KARLIE GOMEZ MD ([email or web address]) on 09/22/24 at 22:06. Electronically submitted by Barbara Pruitt ([email or web address]). I personally scribed for KARLIE GOMEZ MD ([email or web address]) on 09/22/24 at 22:13. Elec tronically submitted by Barbara Pruitt ([email or web address]). KARLIE GOMEZ MD Sep 22, 2024 18:59
[2024-09-22] MEDS ORDERED: ONDANSETRON HCL 4 MG/2 ML VIAL IV ONE (19:15)
[2024-09-22] MEDS ORDERED: SODIUM CHLORIDE 0.9% 1,000 ML IV ONE (19:15)
[2024-09-22] MEDS ORDERED: PANTOPRAZOLE 40 MG/10 ML VIAL INJ IV ONE (19:15)
--- NOTE | 2024-09-22 19:28 | DVH ---
Date: 09/22/2024 07:05 PM Examination: XY KUB ABDOMEN SINGLE VIEW History: abdominal pain Comparison: None TECHNIQUE: Frontal views of the abdomen was obtained. FINDINGS: Bowel gas pattern is unremarkable. The lung bases are unremarkable. No acute osseous abnormality identified. IMPRESSION: 1. Nonobstructive bowel gas pattern.
[2024-09-22 19:43] LABS: Basophils # (auto) 0.1 10 ^3/uL (0-0.2); Eosinophils # (auto) 0.1 10 ^3/uL (0-0.8); Monocytes # (auto) 0.4 10 ^3/uL (0-1.3); Red Cell Distribution Width 15.9 % (11.8-14.3)
[2024-09-22 19:46] LABS: Eosinophils % (auto) 1.3 % (0.0-7.0); Hematocrit 35.6 % (36.0-46.0); Lymphocytes # (auto) 1.2 10 ^3/uL (0.4-5.4); Lymphocytes % (auto) 15.9 % (10.0-50.0); Mean Corpuscular Hemoglobin 23.4 pg (28.0-32.0); Mean Corpuscular Volume 75.7 fL (80.0-100.0); Monocytes % (auto) 5.4 % (0.0-12.0); Neutrophils # (auto) 5.6 10 ^3/uL (1.6-8.6); Neutrophils % (auto) 76.4 % (37.0-80.0); Nucleated Red Blood Cells % 0.1 %; Platelet Count (auto) 402 10^3/uL (140-450); Red Blood Cells 4.71 10^6/uL (4.0-5.20); White Blood Cell 7.3 10^3/uL (4.4-10.8)
[2024-09-22 19:54] LABS: Chloride 100 mmol/L (98-107); Potassium 4.3 mmol/L (3.5-5.1)
[2024-09-22 19:55] LABS: Anion Gap 9 (5-15); Carbon Dioxide 26 mmol/L (20-31)
[2024-09-22 20:00] LABS: BUN/Creatinine Ratio 18.3 (10.0-20.0)
[2024-09-22 20:01] LABS: Blood Urea Nitrogen 23 mg/dL (9-23); Sodium 135 mmol/L (136-145)
[2024-09-22 20:16] LABS: Glucose 472 mg/dL (74-106)
[2024-09-22] MEDS ORDERED: FLEET ENEMA(ADULT) 135 ML PR ONE (22:30)
[2024-09-22] MEDS ORDERED: InsuLIN REG 1unit/0.01ml Soln (100units/ml) IV ONE (22:30)
== END 2024-09-22 23:49 | disposition left against medical advice (07) ==
LOC: ER 18:34 → EDBD 18:34 → ER 23:49
DX: K59.00 Constipation, unspecified (principal); I11.0 Hypertensive heart disease with heart failure; I50.9 Heart failure, unspecified; E11.9 Type 2 diabetes mellitus without complications; I25.2 Old myocardial infarction; Z79.82 Long term (current) use of aspirin; Z79.84 Long term (current) use of oral hypoglycemic drugs; Z79.899 Other long term (current) drug therapy; Z86.73 Personal history of transient ischemic attack (TIA), and cerebral infarction without residual deficits; Z90.49 Acquired absence of other specified parts of digestive tract
CPT/HCPCS: 36415; 74018; 80048; 85025

== ENCOUNTER 2025-03-28 19:34 | Emergency (ER) | payer MEDICAID ==
[~2025-03-28] VITALS: Ht 172.7 cm; Wt 113.5 kg
[2025-03-28 20:38] VITALS: PULSE 90; RESP 16; O2SAT 100
[2025-03-28] MEDS: SODIUM CHLORIDE 0.9% 1,000 ML IV ONE (21:06)
[2025-03-28 22:05] LABS: Mean Corpuscular Hemoglobin 18.0 pg (28.0-32.0); Nucleated Red Blood Cells % 0.0 %
[2025-03-28 22:08] LABS: Hematocrit 24.0 % (36.0-46.0); Mean Corpuscular Volume 63.2 fL (80.0-100.0)
[2025-03-28 22:13] LABS: Alanine Aminotransferase 15 U/L (7-40); Albumin 3.9 g/dL (3.2-4.8); Alkaline Phosphatase 97 U/L (46-116); Anion Gap 9 (5-15); BUN/Creatinine Ratio 9.8 (10.0-20.0); Blood Urea Nitrogen 12 mg/dL (9-23); Potassium 4.3 mmol/L (3.5-5.1); Sodium 140 mmol/L (136-145); Total Protein 6.4 g/dL (5.7-8.2)
[2025-03-28 22:14] LABS: Bilirubin, Total 0.4 mg/dL (0.2-1.0)
[2025-03-28 22:34] LABS: Calcium 8.5 mg/dL (8.7-10.4); Carbon Dioxide 20 mmol/L (20-31); Chloride 111 mmol/L (98-107); Glucose 320 mg/dL (74-106)
[2025-03-28 22:44] LABS: Hemoglobin 6.8 g/dL (12.2-16.2)
--- NOTE | 2025-03-28 22:47 | ED.PDOC ---
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 54-year-old female presents to emergency department for syncope and collapse without any head trauma or injury. Her sister caught her. Patient states that they told her that her blood pressure dropped. Patient has been bleeding for the last six days with a history of dysfunctional uterine bleed awaiting hysterectomy. She used to be on medications for the vaginal bleed but ran out of her medicine a week ago and started bleeding again for the last six days. Patient denies any acute pain anywhere in her body. Patient had blood transfusion in the past. Last transfusion was 1 year ago. Patient is a [facility] patient. Past medical history: OK, 2x strokes, asthma, anemia, DM Past surgical history: PTCA, blood transfusions, tubal ligation, appendectomy Vitals: Temperature 98.5F PUlse 88 Respiratory rate 24 blood pressure 94/64 SpO2 95%RA Final Diagnosis/Problems List January 09, 2022 encounter for acute abdominal pain STEMI involving LAD Secondary Diagnosis: Diabetes mellitus Obesity Diabetic neuropathy Leukocytosis Dyslipidemia REVIEW OF SYSTEMS: CONSTITUTIONAL: Denies acute: fever, diaphoresis, chills, HEAD: Denies acute: headache, photophobia Eyes: Denies acute: Double vision, vision loss, eye pain, eye discharge. EARS: Denies acute: tinnitus, hearing loss, ear discharge, ear pain, THROAT: Denies acute: sore throat, swelling, difficulty swallowing , pain with swallowing, change in voice. NECK: Denies acute: neck pain, neck swelling, stiff neck. HEART: Denies acute : chest pain, palpitations, LUNGS: Denies acute: SOB, wheezing, cough, hemoptysis ABDOMEN: Denies acute: abdominal pain, Nausea, Vomiting, diarrhea, melena , hematemesis, hematochezia SKIN: Denies acute: rash, redness, lesions, itchiness. EXTREMITIES: Denies acute: calf pain, numbness, tingling, weakness, denies pain in extremity. Denies acute: Low back pain. Neuro: Denies acute: focal neurological deficit, motor or sensory focal neurological deficit, tremors, seizure like activity, loss of bowel or bladder function, cauda equina like symptoms. : Denies acute: dysuria, hematuria, flank pain, increase in urinary frequency. PSYCH: Denies acute: hallucination, suicidal ideation, homicidal ideation. FEMALE: Denies acute: oul odor, unusual discharge. PHYSICAL EXAM: General: -----mild---acute distress, awake and alert. Head: normocephalic, atraumatic. Neck: supple, trachea is midline, no swelling. Throat: Normal phonation. Eyes:, no erythema, no purulent discharge, no proptosis, no icterus. Heart: regular rate, regular rhythm, no significant murmur appreciated. Lungs: no apparent respiratory distress, Able to speak in full sentences. No wheezing, no rhonchi, no crackles. No stridors Clear to auscultation bilaterally. Abdomen: non tender to palpation, non distended, soft, no guarding, no rebound, + bowel sounds. Obese Neuro: Awake, Alert, oriented to name, self, situation, follows commands GCS=15. Speech is normal. Skin: no petechia, no purpura, no cyanosis, non-pale, not jaundice. Lower extremities: --no - Pitting edema no deformity, no focal swelling, no calf TTP. Makes eye contact. moves all four extremities. Face: no apparent facial droop. ED COURSE: DISCLAIMER: This medical document was created using an electronic medical record system with voice recognition software and computerized dictation system. Although this document has been carefully reviewed, there might still be some phonetic and typographical errors. Occasional wrong-word or "sound-alike" substitutions may have occurred due to the inherent limitations of voice recognition software. These areas are purely typographical due to imperfections of the software programs and do not reflect any compromise in the patient's medical care. Please read the chart carefully and recognize, using context, where these substitutions have occurred. Chief Complaint: Vaginal Bleed Time Seen by MD: 20:52 Allergies: Coded Allergies: NO KNOWN ALLERGIES (Unverified , 12/04/21) Home Meds Active Scripts Atorvastatin Calcium (ATORVASTATIN CALCIUM) 40 Mg Tab, 1 TAB PO DAILY for 60 Days, #60 TAB 5 Refills Prov:TERRY ROMO FLIGHT ENGINEER 06/15/24 Ticagrelor Base (BRILINTA) 90 Mg Tab, 90 MG PO BID for 60 Days, #120 TAB 2 Refills Prov:TERRY ROMO NP 06/15/24 Aspirin (Aspirin Low Dose) 81 Mg Tab, 81 MG PO DAILY for 60 Days, #60 TAB 2 Refills Prov:TERRY ROMO NP 06/15/24 Medroxyprogesterone Acetate (Medroxyprogesterone Aceta) 10 Mg Tab, 10 MG PO DAILY, #60 TAB 0 Refills Prov:JEROD MIRANDA 01/09/23 Gabapentin (Gabapentin) 800 Mg Tab, 800 MG PO PRN, #30 TAB 0 Refills Prov:JEROD MIRANDA 01/09/23 Reported Medications Insulin Lispro (Human) (Humalog) 100 Unit/Ml Inj, SC QAM, INJ 12/04/21 Ferrous Sulfate (Iron (Ferrous Sulfate)) 50 Mg Tab, 325 MG PO DAILY, TAB 12/04/21 Insulin Glargine (Lantus) 100 Unit/Ml Inj, 24 UNIT SC DAILY, INJ 12/04/21 Metformin Hydrochloride (Metformin Hcl) 500 Mg Tab, PO DAILY for 30 Days, MG 12/04/21 Information Source: Patient Past Medical History PAST MEDICAL HISTORY: CHF, CVA, DM, HTN, [place] 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 Was a procedure done?: No X-Ray, Labs, Meds, VS Vital Signs Date Time Temp Pulse Resp B/P (MAP) Pulse Ox O2 Delivery O2 Flow Rate FiO2 03/29/25 03:24 98.0 96 15 164/86 (112) 97 98.0 03/29/25 03:09 97.7 92 14 149/77 97.7 03/29/25 02:45 98.3 98 16 153/87 (109) 96 98.3 03/29/25 02:35 98.3 98 16 153/87 98.3 03/29/25 02:15 98.6 97 16 150/75 98.6 03/29/25 00:45 92 17 169/73 (105) 100 03/28/25 22:53 86 19 158/83 (108) 100 03/28/25 20:38 98.8 96 16 114/70 (85) 96 98.8 03/28/25 20:38 90 16 100 Room Air* 0 21 03/28/25 19:46 88 03/28/25 19:46 98.5 78 24 94/64 95 98.5 Lab Test 03/29/25 00:45 03/28/25 23:35 03/28/25 21:38 03/28/25 21:30 Range/Units Troponin I High Sensitivity < 3 L < 3 L < 3 L </=34 ng/L White Blood Count 9.3 4.4-10.8 10^3/uL Red Blood Count 3.80 L 4.0-5.20 10^6/uL Hemoglobin 6.8 *L 12.2-16.2 g/dL Hematocrit 24.0 L 36.0-46.0 % Mean Corpuscular Volume 63.2 L 80.0-100.0 fL Mean Corpuscular Hemoglobin 18.0 L 28.0-32.0 pg Mean Corpuscular Hemoglobin Concent 28.5 L 32.0-36.0 g/dL Red Cell Distribution Width 23.4 H 11.8-14.3 % Platelet Count 489 H 140-450 10^3/uL Mean Platelet Volume 8.3 6.9-10.8 fL Neutrophils (%) (Auto) 81.4 H 37.0-80.0 % Lymphocytes (%) (Auto) 11.6 10.0-50.0 % Monocytes (%) (Auto) 5.2 0.0-12.0 % Eosinophils (%) (Auto) 0.9 0.0-7.0 % Basophils (%) (Auto) 0.9 0.0-2.0 % Neutrophils # (Auto) 7.6 1.6-8.6 10 ^3/uL Lymphocytes # (Auto) 1.1 0.4-5.4 10 ^3/uL Monocytes # (Auto) 0.5 0-1.3 10 ^3/uL Eosinophils # (Auto) 0.1 0-0.8 10 ^3/uL Basophils # (Auto) 0.1 0-0.2 10 ^3/uL Nucleated Red Blood Cells 0.0 % Sodium Level 140 136-145 mmol/L Potassium Level 4.3 3.5-5.1 mmol/L Chloride Level 111 H 98-107 mmol/L Carbon Dioxide Level 20 20-31 mmol/L Anion Gap 9 5-15 Blood Urea Nitrogen 12 9-23 mg/dL Creatinine 1.22 H 0.550-1.02 mg/dL Glomerular Filtration Rate Calc 53 >90 mL/min BUN/Creatinine Ratio 9.8 L 10.0-20.0 Serum Glucose 320 H 74-106 mg/dL Lactic Acid Level 1.2 0.4-2.0 mmol/L Calcium Level 8.5 L 8.7-10.4 mg/dL Total Bilirubin 0.4 0.2-1.0 mg/dL Aspartate Amino Transferase (AST) 14 13-40 U/L Alanine Aminotransferase (ALT) 15 7-40 U/L Alkaline Phosphatase 97 46-116 U/L Total Protein 6.4 5.7-8.2 g/dL Albumin 3.9 3.2-4.8 g/dL Urine Color Light-red Yellow Urine Clarity Ex.turbid Clear Urine pH 6.0 5.0-9.0 Urine Specific [place] 1.028 1.001-1.035 Urine Protein 2+ H Negative Urine Ketones Negative Negative Urine Blood 3+ H Negative /uL Urine Nitrite Negative Negative Urine Bilirubin Negative Negative Urine Urobilinogen Normal Negative mg/dL Urine Leukocyte Esterase Trace Negative /uL Urine RBC 7617 0 - 4 /hpf Urine Microscopic WBC 8 H 0-5 /HPF Urine Squamous Epithelial Cells None seen <5 /hpf Urine Bacteria None seen None Seen /hpf Urine Glucose 4+ H Normal mg/dL Current Medications Medications (Trade) Dose Ordered Sig/Pepe Route Start Time Stop Time Status Last Admin Sodium Chloride 1,000 ml @ 1,000 mls/hr Q1H ONCE IV 03/28/25 21:00 03/28/25 21:59 DC 03/28/25 21:06 Time of 1ST Reevaluation: 21:22 Reevaluation 1ST: Unchanged Time of 2ND Reevaluation: 23:10 (The case was discussed with the [facility] admitting team (HPI, physical exam, labs and diagnostic tests that were available at the time of disposition, ED course, treatment plan) on the phone. They agreed to transfer the patient to their service by ALS for further evaluation and treatment. Dr. Romo---. Authorization number is--[id number]) Time of 3RD Reevaluation: 03:47 ([facility] called at this time and requested that we start a 3rd unit of packed red blood cells. They have an accepting physician in [facility]) Patient Education/Counseling: Diagnosis, Treatment Family Education/Counseling: Diagnosis, Treatment Comments [facility] physician said that the patient is on Provera 10 mg daily which she ran out of. I gave her one pill here in the ED. Departure 1 Departure Time of Disposition: 22:57 Impression: Primary Impression: Symptomatic anemia Additional Impression: Vaginal bleeding Disposition: 02 SHORT TERM HOSPITAL Admit to: [facility] Condition: Guarded Discharged With: Self Critical Care Note Critical Care Time?: No I personally scribed for MARISA RICO DO ([email or web address]) on 03/28/25 at 22:47. Electronically submitted by Tristan Ferrari ([email or web address]). I personally scribed for MARISA RICO DO ([email or web address]) on 03/28/25 at 22:57. Electronically submitted by Tristan Ferrari ([email or web address]). MARISA RICO DO Mar 28, 2025 22:47
--- NOTE | 2025-03-28 22:50 | DVH ---
INDICATION: vag bleed TECHNIQUE: Multiple real-time grayscale transabdominal sonographic images along with color and duplex Doppler of the uterus and ovaries were obtained. COMPARISON: PELUS on DOS: 12/04/21, PELVIC on DOS: 12/04/21, PELTR on DOS: 12/04/21 FINDINGS: The uterus measures 15.6 x 8.6 x 7.3 cm. Diffusely heterogeneous uterine echotexture with multiple in tramural or submucosal lesions measuring up to 3.1 cm. The endometrial stripe measures 20 mm. Heterog eneous appearance without discrete fluid in the canal. Right ovary not visualized due to technique, positioning, overlying bowel-gas, and/or body habitus. Left ovary measures 3.5 x 1.5 x 3.1 cm with normal Doppler color flow. No visualized ascites. IMPRESSION: 1. Diffusely thickened endometrium. In the postmenopausal patient, consider hyperplasia or occult end ometrial lesion. Outpatient gynecologic consultation should be considered. No obvious blood products in the endometrial canal. 2. Multi fibroid appearance of the uterus. 3. Normal left ovary. Nonvisualized right ovary.
[2025-03-28 23:00] LABS: Urine Protein, UAD 2+ (Negative)
[2025-03-29] VITALS (14 sets, daily range): BP systolic 123–169; BP diastolic 73–93; PULSE 87–100; RESP 12–18; TEMP 97.1–99.1; O2SAT 99–100
--- NOTE | 2025-03-29 06:24 | ECG ---
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
== END 2025-03-29 15:56 | disposition short-term general hospital (02) ==
LOC: ER 19:34 → EDBD 19:34 → ER 03-29 15:56
DX: D64.9 Anemia, unspecified (principal); N93.9 Abnormal uterine and vaginal bleeding, unspecified; I11.0 Hypertensive heart disease with heart failure; I50.9 Heart failure, unspecified; E78.5 Hyperlipidemia, unspecified; E11.40 Type 2 diabetes mellitus with diabetic neuropathy, unspecified; E66.9 Obesity, unspecified; Z79.899 Other long term (current) drug therapy; Z79.4 Long term (current) use of insulin; Z79.3 Long term (current) use of hormonal contraceptives; Z78.0 Asymptomatic menopausal state; Z79.82 Long term (current) use of aspirin; Z79.84 Long term (current) use of oral hypoglycemic drugs; Z86.73 Personal history of transient ischemic attack (TIA), and cerebral infarction without residual deficits; Z90.49 Acquired absence of other specified parts of digestive tract; Z98.51 Tubal ligation status; Z68.38 Body mass index [BMI] 38.0-38.9, adult
CPT/HCPCS: 36415; 36430; 76856; 80053; 81001; 83605; 84484; 85025; 86850; 86900; 86901; 86920; 93005; 96360; 99285; J7030; P9016